=== PATIENT | male | born 1960 | race Caucasian/White ===

== ENCOUNTER 2019-10-03 11:56 | Inpatient (IN) ==
[2019-10-03] MEDS ORDERED: Ondansetron 4 MG/2 ML VIAL IVP PRN (15:02)
[2019-10-03] MEDS ORDERED: Acetaminophen 325 MG TABLET PO PRN (15:02)
[2019-10-03] MEDS ORDERED: Dextrose Gel 15 GM/37.5 ML TUBE PO PRN ×2 (15:14)
[2019-10-03] MEDS ORDERED: *HR* Dextrose 50 % in Water (Vial) 50 ML VIAL IVP PRN (15:14)
[2019-10-03] MEDS ORDERED: D5% in Water 1,000 ML IVC PRN (15:14)
[2019-10-03] MEDS ORDERED: Furosemide 40 MG/4 ML VIAL IVP ONE (16:06)
[2019-10-03 16:34] LABS: Adenovirus Not Detected (Not Detect); Bordetella Pertussis Not Detected (Not Detect); Chlamydophila pneumoniae Not Detected (Not Detect); Coronavirus 229E Not Detected (Not Detect); Coronavirus HKU1 Not Detected (Not Detect); Coronavirus NL63 Not Detected (Not Detect); Coronavirus OC43 Not Detected (Not Detect); Human Metapneumovirus Not Detected (Not Detect); Human Rhinovirus/Enterovirus Not Detected (Not Detect); Influenza A Subtype 2009 H1 Not Detected (Not Detect); Influenza B Not Detected (Not Detect); Mycoplasma pneumoniae Not Detected (Not Detect); Parainfluenza Virus 1 Not Detected (Not Detect); Parainfluenza Virus 2 Not Detected (Not Detect); Parainfluenza Virus 3 Not Detected (Not Detect); Parainfluenza Virus 4 Not Detected (Not Detect); Respiratory Syncytial Virus Not Detected (Not Detect)
[2019-10-03] MEDS: Insulin LISPRO 300 UNITS/3 ML VIAL SQ SCH ×2 (17:35→21:11)
[2019-10-04 04:02] LABS: Troponin I < 0.03 ng/mL (< 0.04)
[2019-10-04 04:06] LABS: Hematocrit 36.1 % (37.5-50.1); Hemoglobin 11.3 g/dL (12.9-16.9); Mean Corpuscular HGB Conc 31.3 g/dL (31.6-35.5); Mean Corpuscular Hemoglobin 31.3 pg (28.0-33.3); Mean Platelet Volume 12.7 fL (9.4-12.4); Red Blood Count 3.61 M/mcL (4.19-5.50); Red Cell Distribution Width 15.3 % (11.5-14.5); White Blood Count 5.5 K/mcL (4.3-11.1)
[2019-10-04 04:09] LABS: Platelet Count 44 K/mcL (140-400)
[2019-10-04 04:22] LABS: BUN/Creatinine Ratio 15 (6-26); Blood Urea Nitrogen 19 mg/dL (8-23); Calcium 8.9 mg/dL (8.6-10.3); Carbon Dioxide 17 mEq/L (23-29); Chloride 108 mEq/L (98-107); Glucose 92 mg/dL (70-105); Magnesium 1.9 mg/dL (1.6-2.6); Osmolality,Calculated 286 (280-300); Sodium 137 mEq/L (136-145); eGFR For African Americans > 60 (> 60); eGFR For Non-African Americans 56 (> 60)
[2019-10-04] MEDS: Insulin LISPRO 300 UNITS/3 ML VIAL SQ SCH ×3 (07:45→16:37)
[2019-10-04] MEDS: Furosemide 40 MG/4 ML VIAL IVP SCH ×2 (07:48→16:52)
[2019-10-05] MEDS: Insulin LISPRO 300 UNITS/3 ML VIAL SQ SCH ×4 (01:59→17:01)
[2019-10-05 06:40] LABS: BUN/Creatinine Ratio 18 (6-26); Blood Urea Nitrogen 24 mg/dL (8-23); Calcium 8.6 mg/dL (8.6-10.3); Carbon Dioxide 23 mEq/L (23-29); Chloride 107 mEq/L (98-107); Glucose 103 mg/dL (70-105); Magnesium 1.8 mg/dL (1.6-2.6); Osmolality,Calculated 288 (280-300); Potassium 4.1 mEq/L (3.5-5.1); Sodium 137 mEq/L (136-145); eGFR For African Americans > 60 (> 60); eGFR For Non-African Americans 53 (> 60)
[2019-10-05] MEDS: Furosemide 40 MG/4 ML VIAL IVP SCH ×2 (07:54→16:05)
[2019-10-06] MEDS: Insulin LISPRO 300 UNITS/3 ML VIAL SQ SCH ×5 (02:58→20:26)
[2019-10-06 06:53] LABS: Hemoglobin 11.2 g/dL (12.9-16.9); Mean Corpuscular Hemoglobin 31.6 pg (28.0-33.3); Red Blood Count 3.54 M/mcL (4.19-5.50); Red Cell Distribution Width 15.5 % (11.5-14.5)
[2019-10-06 06:55] LABS: Hematocrit 34.7 % (37.5-50.1); Immature Platelets 9.6 % (1.1-6.1); Mean Corpuscular HGB Conc 32.3 g/dL (31.6-35.5); Mean Platelet Volume 12.3 fL (9.4-12.4); White Blood Count 4.7 K/mcL (4.3-11.1)
[2019-10-06 07:15] LABS: BUN/Creatinine Ratio 20 (6-26); Blood Urea Nitrogen 26 mg/dL (8-23); Calcium 8.6 mg/dL (8.6-10.3); Carbon Dioxide 26 mEq/L (23-29); Chloride 107 mEq/L (98-107); Glucose 105 mg/dL (70-105); Magnesium 1.9 mg/dL (1.6-2.6); Osmolality,Calculated 293 (280-300); Sodium 139 mEq/L (136-145); eGFR For African Americans > 60 (> 60); eGFR For Non-African Americans 57 (> 60)
[2019-10-06] MEDS: Furosemide 40 MG/4 ML VIAL IVP SCH (09:17)
[2019-10-06] MEDS: Furosemide 40 MG TABLET PO SCH (16:30)
[2019-10-07 02:52] LABS: BUN/Creatinine Ratio 21 (6-26); Blood Urea Nitrogen 28 mg/dL (8-23); Calcium 8.9 mg/dL (8.6-10.3); Carbon Dioxide 24 mEq/L (23-29); Chloride 106 mEq/L (98-107); Glucose 95 mg/dL (70-105); Osmolality,Calculated 293 (280-300); Potassium 3.7 mEq/L (3.5-5.1); Sodium 139 mEq/L (136-145); eGFR For African Americans > 60 (> 60); eGFR For Non-African Americans 56 (> 60)
[2019-10-07] MEDS: Insulin LISPRO 300 UNITS/3 ML VIAL SQ SCH (07:40)
[2019-10-07 07:47] VITALS: BP 102/51
[2019-10-07] MEDS: Furosemide 40 MG TABLET PO SCH (07:50)
== END 2019-10-07 10:46 | disposition home or self-care (01) | DRG 291 ==
LOC: 2ANU → SUATTDRO 15:02
PROVIDERS: ADMIT Internal Medicine; ATTEND Internal Medicine

== ENCOUNTER 2020-07-06 16:14 | Inpatient (IN) ==
[2020-07-06 18:42] LABS: Basophils % 0.8 %; Eosinophils # 0.2 K/mcL (0.0-0.6); Eosinophils % 3.8 %; Hematocrit 23.4 % (37.5-50.1); Immature Granulocytes % 0.3 % (0-4); Lymphocytes # 1.1 K/mcL (0.6-4.6); Lymphocytes % 29.2 %; Mean Corpuscular HGB Conc 29.9 g/dL (31.6-35.5); Mean Corpuscular Hemoglobin 27.5 pg (28.0-33.3); Mean Corpuscular Volume 91.8 fL (83.0-100.0); Mean Platelet Volume 12.5 fL (9.4-12.4); Monocytes # 0.4 K/mcL (0.0-1.3); Neutrophils # 2.2 K/mcL (1.6-8.9); Platelet Count 45 K/mcL (140-400); Red Blood Count 2.55 M/mcL (4.19-5.50); Red Cell Distribution Width 16.1 % (11.5-14.5); Segmented Neutrophils % 55.9 %; White Blood Count 3.9 K/mcL (4.3-11.1)
[2020-07-06] MEDS ORDERED: Furosemide 40 MG/4 ML VIAL IVP ONE (19:08)
[2020-07-06 20:01] LABS: INR 1.3; Prothrombin Time 15.3 Seconds (9.4-12.1)
[2020-07-06 20:04] LABS: Activated Partial Thrombo Time 24.1 Seconds (26.0-36.0)
[2020-07-06] MEDS ORDERED: 0.9 % Sodium Chloride 500 ML IVC ONE (20:18)
[2020-07-06 20:19] LABS: Alanine Aminotransferase 14 Units/L (7-52); Albumin 3.1 g/dL (3.5-5.7); Albumin/Globulin Ratio 0.9 (1.1-2.2); Alkaline Phosphatase 84 Units/L (34-104); Aspartate Amino Transferase 24 Units/L (13-39); BUN/Creatinine Ratio 14 (6-26); Bilirubin,Direct 0.3 mg/dL (0.0-0.2); Bilirubin,Indirect 0.6 mg/dL (0.0-1.0); Bilirubin,Total 0.9 mg/dL (0.3-1.0); Blood Urea Nitrogen 21 mg/dL (8-23); Carbon Dioxide 20 mEq/L (23-29); Chloride 105 mEq/L (98-107); Globulin 3.5 g/dL (2.4-3.5); Glucose 126 mg/dL (70-105); Magnesium 1.7 mg/dL (1.6-2.6); Osmolality,Calculated 287 (280-300); Potassium 4.3 mEq/L (3.5-5.1); Sodium 136 mEq/L (136-145); Total Protein 6.6 g/dL (6.4-8.9); Troponin I < 0.03 ng/mL (< 0.04); eGFR For African Americans 56 (> 60); eGFR For Non-African Americans 46 (> 60)
[2020-07-06] MEDS ORDERED: Isovue-370 500 ML BOTTLE IVP ONE (20:20)
[2020-07-06] MEDS ORDERED: Pantoprazole 40 MG VIAL IVP ONE ×2 (20:32→23:36)
[2020-07-06 20:35] LABS: Bilirubin,Urine Negative (Negative); Blood,Urine Negative (Negative); Clarity,Urine Clear (Clear); Color,Urine Yellow (Yellow); Glucose,Urine (UA) 300 mg/dL (Normal); Ketones,Urine Negative (Negative); Leukocyte Esterase,Urine Negative (Negative); Nitrite,Urine Negative (Negative); Protein,Urine 50 mg/dL (Neg-Trace); RBC,Urine 0-3 per hpf (0-3); Specific Gravity,Urine 1.019 (1.010-1.025); Squamous Epithelial Cell,Urine Few per hpf (None-Few); Urobilinogen,Urine Normal (Normal); WBC,Urine 0-3 per hpf (0-3)
[2020-07-06] MEDS ORDERED: cefTRIAXone 1,000 MG in Water for inj. (sterile) 10 ML IVP ONE (20:53)
[2020-07-06] MEDS ORDERED: 0.9 % Sodium Chloride 250 ML ONE (21:33)
[2020-07-06] MEDS ORDERED: Octreotide 400 MCG in 0.9 % Sodium Chloride 100 ML IVC SCH (23:45)
[2020-07-07] MEDS: Pantoprazole 40 MG in 0.9 % Sodium Chloride Mini Bag 100 ML IVC SCH ×2 (00:29→11:09)
[2020-07-07] MEDS ORDERED: Ondansetron 4 MG/2 ML VIAL IVP PRN (03:15)
[2020-07-07] MEDS ORDERED: Naloxone 0.4 MG/ML INJ IVP PRN (03:15)
[2020-07-07 04:23] LABS: Adenovirus Not Detected (Not Detect); Bordetella Pertussis Not Detected (Not Detect); Chlamydophila pneumoniae Not Detected (Not Detect); Coronavirus 229E Not Detected (Not Detect); Coronavirus HKU1 Not Detected (Not Detect); Coronavirus NL63 Not Detected (Not Detect); Coronavirus OC43 Not Detected (Not Detect); Human Metapneumovirus Not Detected (Not Detect); Human Rhinovirus/Enterovirus Not Detected (Not Detect); Influenza A Subtype 2009 H1 Not Detected (Not Detect); Influenza B Not Detected (Not Detect); Mycoplasma pneumoniae Not Detected (Not Detect); Parainfluenza Virus 1 Not Detected (Not Detect); Parainfluenza Virus 2 Not Detected (Not Detect); Parainfluenza Virus 3 Not Detected (Not Detect); Parainfluenza Virus 4 Not Detected (Not Detect); Respiratory Syncytial Virus Not Detected (Not Detect); SARS-CoV-2 Not Detected (Not Detect)
[2020-07-07] MEDS ORDERED: *HR* Dextrose 50 % in Water (Vial) 50 ML VIAL IVP PRN (05:30)
[2020-07-07] MEDS ORDERED: Dextrose Gel 15 GM/37.5 ML TUBE PO PRN ×2 (05:30)
[2020-07-07] MEDS ORDERED: D5% in Water 1,000 ML IVC PRN (05:30)
[2020-07-07 07:18] LABS: Calcium 9.1 mg/dL (8.6-10.3); Potassium 4.3 mEq/L (3.5-5.1)
[2020-07-07 07:49] LABS: Hematocrit 26.2 % (37.5-50.1); Hemoglobin 7.8 g/dL (12.9-16.9); Mean Corpuscular HGB Conc 29.8 g/dL (31.6-35.5); Mean Corpuscular Hemoglobin 27.3 pg (28.0-33.3); Mean Corpuscular Volume 91.6 fL (83.0-100.0); Red Blood Count 2.86 M/mcL (4.19-5.50)
[2020-07-07 07:51] LABS: Immature Platelets 8.4 % (1.1-6.1); Mean Platelet Volume 12.3 fL (9.4-12.4); White Blood Count 5.5 K/mcL (4.3-11.1)
[2020-07-07] MEDS ORDERED: Metoclopramide 10 MG/2 ML VIAL IVP ONE (08:21)
[2020-07-07] MEDS ORDERED: Ipratropium/Albuterol Neb 3 ML IH PRN (08:34)
[2020-07-07] MEDS: Insulin LISPRO 300 UNITS/3 ML VIAL SUBQ SCH ×3 (12:18→20:35)
[2020-07-07 12:57] LABS: Hematocrit 23.9 % (37.5-50.1); Hemoglobin 7.2 g/dL (12.9-16.9)
[2020-07-07 13:17] LABS: Calcium 9.2 mg/dL (8.6-10.3); Potassium 4.5 mEq/L (3.5-5.1)
[2020-07-07] MEDS ORDERED: Lidocaine -MPF 2% 2 ML VIAL ONE (13:49)
[2020-07-07] MEDS ORDERED: *HR* Propofol 200 MG/20 ML VIAL IVP ONE (13:49)
[2020-07-07] MEDS ORDERED: calcitrioL 0.25 MCG CAPSULE PO SCH (14:45)
[2020-07-07] MEDS ORDERED: 0.9 % Sodium Chloride 250 ML ONE (18:05)
[2020-07-07] MEDS: Ammonium Lactate 30 APPL/225 GM BOTTLE TP SCH (20:42)
[2020-07-08] MEDS: Insulin LISPRO 300 UNITS/3 ML VIAL SUBQ SCH ×4 (00:41→16:39)
[2020-07-08 03:28] LABS: Basophils # 0.1 K/mcL (0.0-0.2); Eosinophils # 0.1 K/mcL (0.0-0.6); Eosinophils % 2.9 %; Hematocrit 24.6 % (37.5-50.1); Hemoglobin 7.4 g/dL (12.9-16.9); Immature Granulocytes % 0.2 % (0-4); Lymphocytes # 1.6 K/mcL (0.6-4.6); Lymphocytes % 32.2 %; Mean Corpuscular HGB Conc 30.1 g/dL (31.6-35.5); Mean Corpuscular Volume 89.8 fL (83.0-100.0); Mean Platelet Volume 11.5 fL (9.4-12.4); Monocytes # 0.5 K/mcL (0.0-1.3); Monocytes % 10.1 %; Neutrophils # 2.6 K/mcL (1.6-8.9); Platelet Count 56 K/mcL (140-400); Red Blood Count 2.74 M/mcL (4.19-5.50); Red Cell Distribution Width 16.9 % (11.5-14.5); Segmented Neutrophils % 53.6 %; White Blood Count 4.8 K/mcL (4.3-11.1)
[2020-07-08 03:46] LABS: Calcium 8.7 mg/dL (8.6-10.3); Potassium 4.4 mEq/L (3.5-5.1)
[2020-07-08 03:50] LABS: Anisocytosis 1+ (Not Present)
[2020-07-08 03:51] LABS: Platelet Estimate Decreased (Normal)
[2020-07-08] MEDS ORDERED: Cyanocobalamin (B-12) 1,000 MCG/ML VIAL IM SCH (09:00)
[2020-07-08] MEDS ORDERED: 0.9 % Sodium Chloride 250 ML ONE (10:08)
[2020-07-08] MEDS: Finasteride 5 MG TABLET PO SCH (10:43)
[2020-07-08] MEDS: Ammonium Lactate 30 APPL/225 GM BOTTLE TP SCH ×2 (10:44→20:34)
[2020-07-08 15:46] LABS: Hematocrit 26.3 % (37.5-50.1); Hemoglobin 8.1 g/dL (12.9-16.9)
[2020-07-08] MEDS ORDERED: Insulin LISPRO 300 UNITS/3 ML VIAL SUBQ SCH (21:00)
[2020-07-08 23:48] VITALS: O2SAT 92
[2020-07-09 03:39] LABS: Hemoglobin 7.7 g/dL (12.9-16.9); Immature Granulocytes % 0.2 % (0-4)
[2020-07-09 03:41] LABS: Basophils % 0.8 %; Eosinophils # 0.1 K/mcL (0.0-0.6); Eosinophils % 2.8 %; Hematocrit 25.7 % (37.5-50.1); Immature Platelets 8.6 % (1.1-6.1); Lymphocytes # 1.5 K/mcL (0.6-4.6); Mean Corpuscular Hemoglobin 27.4 pg (28.0-33.3); Mean Corpuscular Volume 91.5 fL (83.0-100.0); Mean Platelet Volume 12.2 fL (9.4-12.4); Monocytes # 0.5 K/mcL (0.0-1.3); Monocytes % 9.7 %; Neutrophils # 2.7 K/mcL (1.6-8.9); Red Blood Count 2.81 M/mcL (4.19-5.50); Red Cell Distribution Width 16.6 % (11.5-14.5); Segmented Neutrophils % 55.5 %; White Blood Count 4.9 K/mcL (4.3-11.1)
[2020-07-09 03:47] LABS: Platelet Count 51 K/mcL (140-400)
[2020-07-09 03:58] LABS: Calcium 8.7 mg/dL (8.6-10.3)
[2020-07-09 07:01] VITALS: BP 125/60; PULSE 77; TEMP 97.7
[2020-07-09] MEDS: Insulin LISPRO 300 UNITS/3 ML VIAL SUBQ SCH (09:15)
[2020-07-09] MEDS: Ammonium Lactate 30 APPL/225 GM BOTTLE TP SCH (09:16)
[2020-07-09] MEDS: Finasteride 5 MG TABLET PO SCH (09:16)
== END 2020-07-09 10:02 | disposition home health service (06) | DRG 377 ==
LOC: 3ANU 16:14 → EMEROOARM 16:14 → SUATTDRO 07-07 04:35 → 3ANU 07-07 04:52
PROVIDERS: ADMIT Student in an Organized Health Care Education/Training Program; ATTEND Family Medicine

== ENCOUNTER 2020-07-14 15:27 | Inpatient (IN) ==
[2020-07-14] MEDS ORDERED: Furosemide 40 MG/4 ML VIAL IVP ONE (16:03)
[2020-07-14 17:58] LABS: Basophils # 0.1 K/mcL (0.0-0.2); Eosinophils # 0.2 K/mcL (0.0-0.6); Eosinophils % 3.5 %; Hematocrit 25.8 % (37.5-50.1); Hemoglobin 7.8 g/dL (12.9-16.9); Immature Granulocytes % 0.4 % (0-4); Immature Platelets 7.2 % (1.1-6.1); Lymphocytes # 1.2 K/mcL (0.6-4.6); Lymphocytes % 24.4 %; Mean Corpuscular HGB Conc 30.2 g/dL (31.6-35.5); Mean Corpuscular Hemoglobin 27.8 pg (28.0-33.3); Mean Corpuscular Volume 91.8 fL (83.0-100.0); Monocytes # 0.5 K/mcL (0.0-1.3); Monocytes % 10.4 %; Neutrophils # 3.1 K/mcL (1.6-8.9); Red Blood Count 2.81 M/mcL (4.19-5.50); Red Cell Distribution Width 17.4 % (11.5-14.5); Segmented Neutrophils % 60.3 %; White Blood Count 5.1 K/mcL (4.3-11.1)
[2020-07-14 17:59] LABS: Platelet Count 54 K/mcL (140-400)
[2020-07-14 18:15] LABS: INR 1.4; Prothrombin Time 15.5 Seconds (9.4-12.1)
[2020-07-14 18:21] LABS: Alanine Aminotransferase 15 Units/L (7-52); Albumin 2.9 g/dL (3.5-5.7); Albumin/Globulin Ratio 0.9 (1.1-2.2); Alkaline Phosphatase 83 Units/L (34-104); Aspartate Amino Transferase 28 Units/L (13-39); BUN/Creatinine Ratio 9 (6-26); Bilirubin,Direct 0.3 mg/dL (0.0-0.2); Bilirubin,Indirect 0.9 mg/dL (0.0-1.0); Bilirubin,Total 1.2 mg/dL (0.3-1.0); Blood Urea Nitrogen 13 mg/dL (8-23); Carbon Dioxide 22 mEq/L (23-29); Chloride 109 mEq/L (98-107); Globulin 3.4 g/dL (2.4-3.5); Glucose 135 mg/dL (70-105); Osmolality,Calculated 288 (280-300); Potassium 4.1 mEq/L (3.5-5.1); Sodium 138 mEq/L (136-145); Total Protein 6.3 g/dL (6.4-8.9); Troponin I < 0.03 ng/mL (< 0.04); eGFR For African Americans 58 (> 60); eGFR For Non-African Americans 48 (> 60)
[2020-07-14] MEDS ORDERED: Isovue-370 500 ML BOTTLE IVP ONE (18:43)
[2020-07-14] MEDS ORDERED: Naloxone 0.4 MG/ML INJ IVP PRN (21:27)
[2020-07-14] MEDS ORDERED: Perflutren Lipid Microsphere 1.3 ML in 0.9 % Sodium Chloride 8.7 ML IVP PRN (23:08)
[2020-07-14] MEDS ORDERED: D5% in Water 1,000 ML IVC PRN (23:13)
[2020-07-14] MEDS ORDERED: *HR* Dextrose 50 % in Water (Vial) 50 ML VIAL IVP PRN (23:13)
[2020-07-14] MEDS ORDERED: Dextrose Gel 15 GM/37.5 ML TUBE PO PRN ×2 (23:13)
[2020-07-14] MEDS ORDERED: Insulin DETEMIR 100 UNIT/ML X5UNITS SUBQ SCH (23:15)
[2020-07-14] MEDS ORDERED: Insulin LISPRO 300 UNITS/3 ML VIAL SUBQ SCH (23:15)
[2020-07-14] MEDS: Insulin LISPRO 300 UNITS/3 ML VIAL SUBQ SCH (23:47)
[2020-07-15 01:49] LABS: Immature Granulocytes % 0.2 % (0-4); Mean Corpuscular HGB Conc 30.1 g/dL (31.6-35.5); Red Cell Distribution Width 17.3 % (11.5-14.5)
[2020-07-15 01:51] LABS: Basophils % 0.9 %; Eosinophils # 0.2 K/mcL (0.0-0.6); Hematocrit 25.6 % (37.5-50.1); Hemoglobin 7.7 g/dL (12.9-16.9); Immature Platelets 7.1 % (1.1-6.1); Lymphocytes # 1.4 K/mcL (0.6-4.6); Lymphocytes % 31.6 %; Mean Corpuscular Hemoglobin 27.7 pg (28.0-33.3); Mean Corpuscular Volume 92.1 fL (83.0-100.0); Mean Platelet Volume 12.3 fL (9.4-12.4); Monocytes # 0.5 K/mcL (0.0-1.3); Monocytes % 10.4 %; Neutrophils # 2.4 K/mcL (1.6-8.9); Red Blood Count 2.78 M/mcL (4.19-5.50); Segmented Neutrophils % 52.9 %; White Blood Count 4.5 K/mcL (4.3-11.1)
[2020-07-15 02:06] LABS: BUN/Creatinine Ratio 9 (6-26); Blood Urea Nitrogen 13 mg/dL (8-23); Carbon Dioxide 24 mEq/L (23-29); Chloride 108 mEq/L (98-107); Glucose 122 mg/dL (70-105); Osmolality,Calculated 287 (280-300); Potassium 3.9 mEq/L (3.5-5.1); Sodium 138 mEq/L (136-145); eGFR For African Americans > 60 (> 60); eGFR For Non-African Americans 50 (> 60)
[2020-07-15 02:11] LABS: Platelet Count 52 K/mcL (140-400)
[2020-07-15] MEDS: Gabapentin 100 MG CAPSULE PO SCH ×4 (03:56→20:45)
[2020-07-15] MEDS: Insulin LISPRO 300 UNITS/3 ML VIAL SUBQ SCH ×4 (07:31→20:14)
[2020-07-15] MEDS ORDERED: Tiotropium 10 INH DOSE IH ONE (07:56)
[2020-07-15] MEDS ORDERED: Furosemide 40 MG/4 ML VIAL IV SCH (08:00)
[2020-07-15] MEDS: Tiotropium 10 INH DOSE IH SCH (08:01)
[2020-07-15] MEDS: Budesonide/Formoterol 160/4.5 1 PUFF INH IH SCH (08:02)
[2020-07-15] MEDS: Finasteride 5 MG TABLET PO SCH (08:21)
[2020-07-15] MEDS ORDERED: Furosemide 80 MG in 0.9 % Sodium Chloride 50 ML IV SCH (09:00)
[2020-07-15] MEDS ORDERED: Furosemide 40 MG/4 ML VIAL IVP SCH (09:00)
[2020-07-15] MEDS: calcitrioL 0.25 MCG CAPSULE PO SCH (14:41)
[2020-07-15] MEDS: Furosemide 40 MG/4 ML VIAL IVP SCH (16:53)
[2020-07-15] MEDS: Ammonium Lactate 30 APPL/225 GM BOTTLE TP SCH (20:46)
[2020-07-16 02:59] LABS: Eosinophils % 4.3 %; Immature Granulocytes % 0.2 % (0-4); Mean Corpuscular HGB Conc 30.2 g/dL (31.6-35.5); Red Cell Distribution Width 17.6 % (11.5-14.5)
[2020-07-16 03:01] LABS: Basophils # 0.1 K/mcL (0.0-0.2); Basophils % 1.2 %; Eosinophils # 0.2 K/mcL (0.0-0.6); Hematocrit 24.5 % (37.5-50.1); Hemoglobin 7.4 g/dL (12.9-16.9); Immature Platelets 8.1 % (1.1-6.1); Lymphocytes # 1.5 K/mcL (0.6-4.6); Lymphocytes % 35.5 %; Mean Corpuscular Hemoglobin 27.4 pg (28.0-33.3); Mean Corpuscular Volume 90.7 fL (83.0-100.0); Mean Platelet Volume 11.3 fL (9.4-12.4); Monocytes # 0.4 K/mcL (0.0-1.3); Monocytes % 10.4 %; Segmented Neutrophils % 48.4 %; White Blood Count 4.1 K/mcL (4.3-11.1)
[2020-07-16 03:06] LABS: Platelet Count 53 K/mcL (140-400)
[2020-07-16 03:25] LABS: Albumin 2.9 g/dL (3.5-5.7); Albumin/Globulin Ratio 0.9 (1.1-2.2); Bilirubin,Direct 0.3 mg/dL (0.0-0.2); Bilirubin,Indirect 0.9 mg/dL (0.0-1.0); Bilirubin,Total 1.2 mg/dL (0.3-1.0); Calcium 8.9 mg/dL (8.6-10.3); Globulin 3.4 g/dL (2.4-3.5); Magnesium 1.7 mg/dL (1.6-2.6); Total Protein 6.3 g/dL (6.4-8.9)
[2020-07-16 03:44] LABS: Folate 7.9 ng/mL (3.0-16.0)
[2020-07-16 03:46] LABS: Vitamin B12 > 1500 pg/mL (250-1100)
[2020-07-16 04:02] LABS: Hepatitis B Surface Antigen Nonreactive (Nonreactive)
[2020-07-16 04:30] LABS: Hepatitis C Virus Antibody Nonreactive (Nonreactive)
[2020-07-16] MEDS: Insulin LISPRO 300 UNITS/3 ML VIAL SUBQ SCH ×4 (07:03→21:46)
[2020-07-16] MEDS: Budesonide/Formoterol 160/4.5 1 PUFF INH IH SCH (07:45)
[2020-07-16] MEDS: Tiotropium 10 INH DOSE IH SCH (07:45)
[2020-07-16] MEDS: Gabapentin 100 MG CAPSULE PO SCH ×3 (08:54→20:21)
[2020-07-16] MEDS: Furosemide 40 MG/4 ML VIAL IVP SCH ×2 (08:54→17:54)
[2020-07-16] MEDS: Ammonium Lactate 30 APPL/225 GM BOTTLE TP SCH ×2 (08:54→20:22)
[2020-07-16] MEDS: Finasteride 5 MG TABLET PO SCH (08:54)
[2020-07-16] MEDS: Iron Sucrose Complex 250 MG in 0.9 % Sodium Chloride 250 ML IVPB SCH (08:55)
[2020-07-16] MEDS: Nicotine 14 MG PATCH.TD24 TD SCH (08:59)
[2020-07-16] MEDS ORDERED: CALCIFEDIOL 30 MCG PO SCH (09:00)
[2020-07-17 02:04] LABS: Hemoglobin 7.6 g/dL (12.9-16.9); Immature Granulocytes % 0.2 % (0-4)
[2020-07-17 02:06] LABS: Basophils # 0.1 K/mcL (0.0-0.2); Basophils % 1.2 %; Eosinophils # 0.2 K/mcL (0.0-0.6); Eosinophils % 3.8 %; Hematocrit 24.7 % (37.5-50.1); Immature Platelets 7.8 % (1.1-6.1); Lymphocytes # 1.5 K/mcL (0.6-4.6); Lymphocytes % 36.3 %; Mean Corpuscular HGB Conc 30.8 g/dL (31.6-35.5); Mean Corpuscular Hemoglobin 27.7 pg (28.0-33.3); Mean Corpuscular Volume 90.1 fL (83.0-100.0); Mean Platelet Volume 11.5 fL (9.4-12.4); Monocytes # 0.4 K/mcL (0.0-1.3); Monocytes % 10.4 %; Red Blood Count 2.74 M/mcL (4.19-5.50); Red Cell Distribution Width 17.6 % (11.5-14.5); Segmented Neutrophils % 48.1 %; White Blood Count 4.2 K/mcL (4.3-11.1)
[2020-07-17 02:12] LABS: Platelet Count 54 K/mcL (140-400)
[2020-07-17 02:24] LABS: Calcium 8.9 mg/dL (8.6-10.3); Magnesium 1.7 mg/dL (1.6-2.6)
[2020-07-17 02:30] LABS: Anisocytosis 1+ (Not Present); Platelet Estimate Decreased (Normal); Poikilocytosis 1+ (Not Present); Target Cells 1+ (Not Present)
[2020-07-17] MEDS: Tiotropium 10 INH DOSE IH SCH (07:24)
[2020-07-17] MEDS: Budesonide/Formoterol 160/4.5 1 PUFF INH IH SCH (07:24)
[2020-07-17] MEDS: Insulin LISPRO 300 UNITS/3 ML VIAL SUBQ SCH ×4 (07:49→20:27)
[2020-07-17] MEDS: Gabapentin 100 MG CAPSULE PO SCH ×3 (08:12→20:27)
[2020-07-17] MEDS: Furosemide 40 MG/4 ML VIAL IVP SCH (08:13)
[2020-07-17] MEDS: Finasteride 5 MG TABLET PO SCH (08:13)
[2020-07-17] MEDS: Nicotine 14 MG PATCH.TD24 TD SCH (08:13)
[2020-07-17] MEDS: Ammonium Lactate 30 APPL/225 GM BOTTLE TP SCH ×2 (08:14→20:22)
[2020-07-17] MEDS: Iron Sucrose Complex 250 MG in 0.9 % Sodium Chloride 250 ML IVPB SCH (10:20)
[2020-07-17] MEDS: calcitrioL 0.25 MCG CAPSULE PO SCH (14:41)
[2020-07-17] MEDS: Furosemide 40 MG TABLET PO SCH (18:21)
[2020-07-17] MEDS: Loratadine 10 MG TABLET PO SCH (20:27)
[2020-07-18 01:33] LABS: Hemoglobin 7.7 g/dL (12.9-16.9)
[2020-07-18 01:35] LABS: Basophils # 0.1 K/mcL (0.0-0.2); Basophils % 1.2 %; Eosinophils # 0.2 K/mcL (0.0-0.6); Eosinophils % 3.5 %; Hematocrit 25.8 % (37.5-50.1); Immature Granulocytes % 0.2 % (0-4); Immature Platelets 7.5 % (1.1-6.1); Lymphocytes # 1.4 K/mcL (0.6-4.6); Lymphocytes % 32.9 %; Mean Corpuscular HGB Conc 29.8 g/dL (31.6-35.5); Mean Corpuscular Hemoglobin 27.3 pg (28.0-33.3); Mean Corpuscular Volume 91.5 fL (83.0-100.0); Monocytes # 0.4 K/mcL (0.0-1.3); Monocytes % 10.3 %; Neutrophils # 2.2 K/mcL (1.6-8.9); Red Blood Count 2.82 M/mcL (4.19-5.50); Red Cell Distribution Width 17.8 % (11.5-14.5); Segmented Neutrophils % 51.9 %; White Blood Count 4.3 K/mcL (4.3-11.1)
[2020-07-18 01:36] LABS: Platelet Count 55 K/mcL (140-400)
[2020-07-18 01:54] LABS: Calcium 9.1 mg/dL (8.6-10.3); Magnesium 1.8 mg/dL (1.6-2.6); Potassium 4.3 mEq/L (3.5-5.1)
[2020-07-18] MEDS: Insulin LISPRO 300 UNITS/3 ML VIAL SUBQ SCH ×4 (07:48→21:04)
[2020-07-18] MEDS: Nicotine 14 MG PATCH.TD24 TD SCH (07:50)
[2020-07-18] MEDS: Ammonium Lactate 30 APPL/225 GM BOTTLE TP SCH ×2 (07:57→21:05)
[2020-07-18] MEDS: Furosemide 40 MG TABLET PO SCH ×2 (07:57→16:11)
[2020-07-18] MEDS: Gabapentin 100 MG CAPSULE PO SCH ×3 (07:57→21:04)
[2020-07-18] MEDS: Finasteride 5 MG TABLET PO SCH (07:57)
[2020-07-18] MEDS: Iron Sucrose Complex 250 MG in 0.9 % Sodium Chloride 250 ML IVPB SCH (07:58)
[2020-07-18] MEDS: Budesonide/Formoterol 160/4.5 1 PUFF INH IH SCH (10:42)
[2020-07-18] MEDS: Tiotropium 10 INH DOSE IH SCH (10:44)
[2020-07-18] MEDS ORDERED: Isovue-370 500 ML BOTTLE IVP ONE (15:10)
[2020-07-18 15:42] LABS: Hemoglobin 8.2 g/dL (12.9-16.9); Red Cell Distribution Width 17.8 % (11.5-14.5)
[2020-07-18 15:44] LABS: Eosinophils # 0.1 K/mcL (0.0-0.6); Eosinophils % 2.4 %; Hematocrit 26.8 % (37.5-50.1); Immature Granulocytes % 0.7 % (0-4); Lymphocytes # 1.1 K/mcL (0.6-4.6); Lymphocytes % 26.5 %; Mean Corpuscular HGB Conc 30.6 g/dL (31.6-35.5); Mean Corpuscular Hemoglobin 27.7 pg (28.0-33.3); Mean Corpuscular Volume 90.5 fL (83.0-100.0); Mean Platelet Volume 11.8 fL (9.4-12.4); Monocytes # 0.4 K/mcL (0.0-1.3); Monocytes % 10.7 %; Neutrophils # 2.4 K/mcL (1.6-8.9); Red Blood Count 2.96 M/mcL (4.19-5.50); Segmented Neutrophils % 58.7 %; White Blood Count 4.1 K/mcL (4.3-11.1)
[2020-07-18 15:56] LABS: Alanine Aminotransferase 15 Units/L (7-52); Albumin 3.3 g/dL (3.5-5.7); Albumin/Globulin Ratio 0.9 (1.1-2.2); Alkaline Phosphatase 90 Units/L (34-104); Aspartate Amino Transferase 28 Units/L (13-39); BUN/Creatinine Ratio 14 (6-26); Bilirubin,Direct 0.4 mg/dL (0.0-0.2); Bilirubin,Indirect 0.8 mg/dL (0.0-1.0); Bilirubin,Total 1.2 mg/dL (0.3-1.0); Blood Urea Nitrogen 22 mg/dL (8-23); Calcium 9.5 mg/dL (8.6-10.3); Carbon Dioxide 25 mEq/L (23-29); Chloride 106 mEq/L (98-107); Globulin 3.7 g/dL (2.4-3.5); Glucose 117 mg/dL (70-105); Magnesium 1.8 mg/dL (1.6-2.6); Osmolality,Calculated 290 (280-300); Platelet Count 54 K/mcL (140-400); Potassium 4.2 mEq/L (3.5-5.1); Sodium 138 mEq/L (136-145); Troponin I < 0.03 ng/mL (< 0.04); eGFR For African Americans 56 (> 60); eGFR For Non-African Americans 46 (> 60)
[2020-07-18 16:05] LABS: Anisocytosis 1+ (Not Present); Hypochromasia Present (Not Present); Platelet Estimate Decreased (Normal)
[2020-07-18] MEDS: Lactulose Oral Soln 20 GM/30 ML UDC PO SCH ×2 (16:45→21:04)
[2020-07-18] MEDS: Loratadine 10 MG TABLET PO SCH (21:04)
[2020-07-18] MEDS: Ipratropium/Albuterol Neb 3 ML IH PRN (21:31)
[2020-07-18 21:48] LABS: ABG Base Excess 3 mEq/L (-2 to 3); ABG HCO3 28 mEq/L (21-27); ABG Oxygen Saturation 92 % (95-98); ABG PCO2 43 mmHg (35-45); ABG PH 7.42 pH Units (7.32-7.45); ABG PO2 64 mmHg (85-104); ABG TCO2 30 mEq/L (20-26)
[2020-07-19] MEDS: Melatonin 3 MG TABLET PO SCH ×2 (00:11→20:46)
[2020-07-19 02:20] LABS: Immature Granulocytes % 0.5 % (0-4)
[2020-07-19 02:22] LABS: Eosinophils # 0.1 K/mcL (0.0-0.6); Eosinophils % 1.8 %; Hematocrit 26.7 % (37.5-50.1); Lymphocytes # 1.2 K/mcL (0.6-4.6); Mean Corpuscular Volume 90.2 fL (83.0-100.0); Mean Platelet Volume 11.3 fL (9.4-12.4); Monocytes # 0.4 K/mcL (0.0-1.3); Monocytes % 10.4 %; Neutrophils # 2.3 K/mcL (1.6-8.9); Red Blood Count 2.96 M/mcL (4.19-5.50); Red Cell Distribution Width 18.1 % (11.5-14.5); Segmented Neutrophils % 57.3 %
[2020-07-19 02:26] LABS: Platelet Count 56 K/mcL (140-400)
[2020-07-19 02:34] LABS: INR 1.4; Prothrombin Time 15.5 Seconds (9.4-12.1)
[2020-07-19 02:42] LABS: BUN/Creatinine Ratio 15 (6-26); Blood Urea Nitrogen 21 mg/dL (8-23); Calcium 9.4 mg/dL (8.6-10.3); Carbon Dioxide 24 mEq/L (23-29); Chloride 107 mEq/L (98-107); Glucose 109 mg/dL (70-105); Magnesium 1.8 mg/dL (1.6-2.6); Osmolality,Calculated 294 (280-300); Potassium 4.2 mEq/L (3.5-5.1); Sodium 140 mEq/L (136-145); eGFR For African Americans > 60 (> 60); eGFR For Non-African Americans 51 (> 60)
[2020-07-19 02:43] LABS: Albumin 3.1 g/dL (3.5-5.7); Albumin/Globulin Ratio 0.8 (1.1-2.2); Bilirubin,Direct 0.4 mg/dL (0.0-0.2); Bilirubin,Indirect 0.9 mg/dL (0.0-1.0); Bilirubin,Total 1.3 mg/dL (0.3-1.0); Globulin 3.7 g/dL (2.4-3.5); Total Protein 6.8 g/dL (6.4-8.9)
[2020-07-19] MEDS: Insulin LISPRO 300 UNITS/3 ML VIAL SUBQ SCH ×4 (08:00→21:01)
[2020-07-19] MEDS: Furosemide 40 MG TABLET PO SCH (08:00)
[2020-07-19] MEDS: Gabapentin 100 MG CAPSULE PO SCH ×3 (08:00→20:47)
[2020-07-19] MEDS: Finasteride 5 MG TABLET PO SCH (08:01)
[2020-07-19] MEDS: Nicotine 14 MG PATCH.TD24 TD SCH (08:02)
[2020-07-19] MEDS: Lactulose Oral Soln 20 GM/30 ML UDC PO SCH ×3 (08:02→20:48)
[2020-07-19] MEDS: Ammonium Lactate 30 APPL/225 GM BOTTLE TP SCH ×2 (08:02→20:47)
[2020-07-19] MEDS: Budesonide/Formoterol 160/4.5 1 PUFF INH IH SCH (09:06)
[2020-07-19] MEDS: Tiotropium 10 INH DOSE IH SCH (09:07)
[2020-07-19] MEDS: Ipratropium/Albuterol Neb 3 ML IH PRN (09:08)
[2020-07-19] MEDS: Iron Sucrose Complex 250 MG in 0.9 % Sodium Chloride 250 ML IVPB SCH (09:15)
[2020-07-19] MEDS: calcitrioL 0.25 MCG CAPSULE PO SCH (15:13)
[2020-07-19] MEDS: Furosemide 40 MG/4 ML VIAL IVP SCH ×2 (15:14→20:48)
[2020-07-19] MEDS: Loratadine 10 MG TABLET PO SCH (20:47)
[2020-07-20 04:12] LABS: Basophils % 1.1 %; Eosinophils % 3.1 %; Red Blood Count 2.89 M/mcL (4.19-5.50)
[2020-07-20 04:13] LABS: Basophils # 0.1 K/mcL (0.0-0.2); Eosinophils # 0.1 K/mcL (0.0-0.6); Hematocrit 26.6 % (37.5-50.1); Immature Granulocytes % 0.7 % (0-4); Immature Platelets 8.2 % (1.1-6.1); Lymphocytes # 1.4 K/mcL (0.6-4.6); Lymphocytes % 30.8 %; Mean Corpuscular HGB Conc 30.1 g/dL (31.6-35.5); Mean Corpuscular Hemoglobin 27.7 pg (28.0-33.3); Mean Platelet Volume 11.8 fL (9.4-12.4); Monocytes # 0.5 K/mcL (0.0-1.3); Monocytes % 11.7 %; Red Cell Distribution Width 18.7 % (11.5-14.5); Segmented Neutrophils % 52.6 %; White Blood Count 4.5 K/mcL (4.3-11.1)
[2020-07-20 04:17] LABS: Neutrophils # 2.4 K/mcL (1.6-8.9); Platelet Count 53 K/mcL (140-400)
[2020-07-20 04:21] LABS: Albumin/Globulin Ratio 0.9 (1.1-2.2); Bilirubin,Direct 0.4 mg/dL (0.0-0.2); Bilirubin,Indirect 1.1 mg/dL (0.0-1.0); Bilirubin,Total 1.5 mg/dL (0.3-1.0); Calcium 9.3 mg/dL (8.6-10.3); Globulin 3.3 g/dL (2.4-3.5); Magnesium 1.9 mg/dL (1.6-2.6); Phosphorous 3.1 mg/dL (2.7-4.5); Potassium 3.6 mEq/L (3.5-5.1); Total Protein 6.3 g/dL (6.4-8.9)
[2020-07-20 04:22] LABS: Estimated Average Glucose 100 mg/dl; Hemoglobin A1C 5.1 %
[2020-07-20] MEDS: Lactulose Oral Soln 20 GM/30 ML UDC PO SCH ×3 (08:41→21:53)
[2020-07-20] MEDS: Nicotine 14 MG PATCH.TD24 TD SCH (08:43)
[2020-07-20] MEDS: Gabapentin 100 MG CAPSULE PO SCH ×3 (08:43→21:55)
[2020-07-20] MEDS: Finasteride 5 MG TABLET PO SCH (08:43)
[2020-07-20] MEDS: Furosemide 40 MG/4 ML VIAL IVP SCH ×2 (08:44→21:53)
[2020-07-20] MEDS: Insulin LISPRO 300 UNITS/3 ML VIAL SUBQ SCH ×4 (08:55→22:03)
[2020-07-20] MEDS: Ammonium Lactate 30 APPL/225 GM BOTTLE TP SCH (08:59)
[2020-07-20] MEDS: Budesonide/Formoterol 160/4.5 1 PUFF INH IH SCH (11:30)
[2020-07-20] MEDS: Tiotropium 10 INH DOSE IH SCH (11:30)
[2020-07-20] MEDS: Loratadine 10 MG TABLET PO SCH (21:54)
[2020-07-20] MEDS: Melatonin 3 MG TABLET PO SCH (21:54)
[2020-07-21] MEDS: Ammonium Lactate 30 APPL/225 GM BOTTLE TP SCH ×3 (00:41→22:26)
[2020-07-21 03:00] LABS: Alanine Aminotransferase 18 Units/L (7-52); Albumin 3.1 g/dL (3.5-5.7); Albumin/Globulin Ratio 0.8 (1.1-2.2); Alkaline Phosphatase 86 Units/L (34-104); Aspartate Amino Transferase 50 Units/L (13-39); BUN/Creatinine Ratio 12 (6-26); Bilirubin,Direct 0.3 mg/dL (0.0-0.2); Bilirubin,Indirect 1.5 mg/dL (0.0-1.0); Bilirubin,Total 1.8 mg/dL (0.3-1.0); Blood Urea Nitrogen 17 mg/dL (8-23); Calcium 9.5 mg/dL (8.6-10.3); Carbon Dioxide 27 mEq/L (23-29); Chloride 110 mEq/L (98-107); Globulin 3.8 g/dL (2.4-3.5); Glucose 106 mg/dL (70-105); Osmolality,Calculated 302 (280-300); Potassium 3.8 mEq/L (3.5-5.1); Sodium 145 mEq/L (136-145); Total Protein 6.9 g/dL (6.4-8.9); eGFR For African Americans > 60 (> 60); eGFR For Non-African Americans 50 (> 60)
[2020-07-21 04:52] LABS: Basophils % 0.9 %; Immature Granulocytes % 0.7 % (0-4); Mean Corpuscular Volume 91.6 fL (83.0-100.0)
[2020-07-21 04:54] LABS: Eosinophils # 0.2 K/mcL (0.0-0.6); Eosinophils % 3.7 %; Hematocrit 27.3 % (37.5-50.1); Hemoglobin 8.3 g/dL (12.9-16.9); Immature Platelets 8.3 % (1.1-6.1); Lymphocytes # 1.4 K/mcL (0.6-4.6); Lymphocytes % 30.6 %; Mean Corpuscular HGB Conc 30.4 g/dL (31.6-35.5); Mean Corpuscular Hemoglobin 27.9 pg (28.0-33.3); Mean Platelet Volume 12.9 fL (9.4-12.4); Monocytes # 0.5 K/mcL (0.0-1.3); Monocytes % 10.9 %; Red Blood Count 2.98 M/mcL (4.19-5.50); Red Cell Distribution Width 19.2 % (11.5-14.5); Segmented Neutrophils % 53.2 %; White Blood Count 4.6 K/mcL (4.3-11.1)
[2020-07-21 04:58] LABS: Neutrophils # 2.5 K/mcL (1.6-8.9); Platelet Count 50 K/mcL (140-400)
[2020-07-21] MEDS: Budesonide/Formoterol 160/4.5 1 PUFF INH IH SCH (07:41)
[2020-07-21] MEDS: Tiotropium 10 INH DOSE IH SCH (07:41)
[2020-07-21] MEDS: Insulin LISPRO 300 UNITS/3 ML VIAL SUBQ SCH ×4 (08:05→22:15)
[2020-07-21] MEDS: Lactulose Oral Soln 20 GM/30 ML UDC PO SCH ×3 (08:49→22:14)
[2020-07-21] MEDS: Finasteride 5 MG TABLET PO SCH (08:49)
[2020-07-21] MEDS: Gabapentin 100 MG CAPSULE PO SCH ×3 (08:50→22:26)
[2020-07-21] MEDS: Nicotine 14 MG PATCH.TD24 TD SCH (08:50)
[2020-07-21] MEDS: Furosemide 40 MG/4 ML VIAL IVP SCH ×2 (08:51→22:15)
[2020-07-21] MEDS: calcitrioL 0.25 MCG CAPSULE PO SCH (11:33)
[2020-07-21] MEDS: Melatonin 3 MG TABLET PO SCH (22:14)
[2020-07-21] MEDS: Loratadine 10 MG TABLET PO SCH (22:14)
[2020-07-22 05:34] LABS: Basophils # 0.1 K/mcL (0.0-0.2); Basophils % 1.1 %; Eosinophils # 0.2 K/mcL (0.0-0.6); Eosinophils % 4.7 %; Hematocrit 27.1 % (37.5-50.1); Hemoglobin 8.1 g/dL (12.9-16.9); Immature Granulocytes % 0.4 % (0-4); Lymphocytes # 1.5 K/mcL (0.6-4.6); Lymphocytes % 32.3 %; Mean Corpuscular HGB Conc 29.9 g/dL (31.6-35.5); Mean Corpuscular Hemoglobin 27.6 pg (28.0-33.3); Mean Corpuscular Volume 92.2 fL (83.0-100.0); Mean Platelet Volume 11.9 fL (9.4-12.4); Monocytes # 0.4 K/mcL (0.0-1.3); Monocytes % 8.3 %; Neutrophils # 2.5 K/mcL (1.6-8.9); Platelet Count 57 K/mcL (140-400); Red Blood Count 2.94 M/mcL (4.19-5.50); Segmented Neutrophils % 53.2 %; White Blood Count 4.7 K/mcL (4.3-11.1)
[2020-07-22 05:43] LABS: Magnesium 1.7 mg/dL (1.6-2.6); Potassium 3.5 mEq/L (3.5-5.1)
[2020-07-22 05:44] LABS: Albumin/Globulin Ratio 0.9 (1.1-2.2); Bilirubin,Direct 0.4 mg/dL (0.0-0.2); Bilirubin,Indirect 1.4 mg/dL (0.0-1.0); Bilirubin,Total 1.8 mg/dL (0.3-1.0); Globulin 3.4 g/dL (2.4-3.5); Total Protein 6.4 g/dL (6.4-8.9)
[2020-07-22] MEDS: Tiotropium 10 INH DOSE IH SCH (07:50)
[2020-07-22] MEDS: Budesonide/Formoterol 160/4.5 1 PUFF INH IH SCH (07:52)
[2020-07-22] MEDS: Insulin LISPRO 300 UNITS/3 ML VIAL SUBQ SCH ×4 (08:10→21:15)
[2020-07-22] MEDS: Lactulose Oral Soln 20 GM/30 ML UDC PO SCH ×3 (08:45→21:15)
[2020-07-22] MEDS: Nicotine 14 MG PATCH.TD24 TD SCH (08:46)
[2020-07-22] MEDS: Furosemide 40 MG/4 ML VIAL IVP SCH (08:46)
[2020-07-22] MEDS: Finasteride 5 MG TABLET PO SCH (08:46)
[2020-07-22] MEDS: Gabapentin 100 MG CAPSULE PO SCH ×3 (08:46→21:15)
[2020-07-22] MEDS: Ammonium Lactate 30 APPL/225 GM BOTTLE TP SCH ×2 (08:48→21:12)
[2020-07-22 16:56] LABS: Adenovirus Not Detected (Not Detect); Bordetella Pertussis Not Detected (Not Detect); Chlamydophila pneumoniae Not Detected (Not Detect); Coronavirus 229E Not Detected (Not Detect); Coronavirus HKU1 Not Detected (Not Detect); Coronavirus NL63 Not Detected (Not Detect); Coronavirus OC43 Not Detected (Not Detect); Human Metapneumovirus Not Detected (Not Detect); Human Rhinovirus/Enterovirus Not Detected (Not Detect); Influenza A Subtype 2009 H1 Not Detected (Not Detect); Influenza B Not Detected (Not Detect); Mycoplasma pneumoniae Not Detected (Not Detect); Parainfluenza Virus 1 Not Detected (Not Detect); Parainfluenza Virus 2 Not Detected (Not Detect); Parainfluenza Virus 3 Not Detected (Not Detect); Parainfluenza Virus 4 Not Detected (Not Detect); Respiratory Syncytial Virus Not Detected (Not Detect); SARS-CoV-2 Not Detected (Not Detect)
[2020-07-22] MEDS ORDERED: Furosemide 40 MG/4 ML VIAL IVP SCH (17:00)
[2020-07-22] MEDS: Furosemide 40 MG TABLET PO SCH (17:46)
[2020-07-22] MEDS: Loratadine 10 MG TABLET PO SCH (21:13)
[2020-07-22] MEDS: Melatonin 3 MG TABLET PO SCH (21:13)
[2020-07-23 04:56] LABS: BUN/Creatinine Ratio 10 (6-26); Blood Urea Nitrogen 15 mg/dL (8-23); Calcium 8.6 mg/dL (8.6-10.3); Carbon Dioxide 27 mEq/L (23-29); Chloride 106 mEq/L (98-107); Glucose 107 mg/dL (70-105); Osmolality,Calculated 291 (280-300); Potassium 3.5 mEq/L (3.5-5.1); Sodium 140 mEq/L (136-145); eGFR For African Americans > 60 (> 60); eGFR For Non-African Americans 50 (> 60)
[2020-07-23 07:19] VITALS: BP 96/60
[2020-07-23] MEDS: Insulin LISPRO 300 UNITS/3 ML VIAL SUBQ SCH (09:55)
[2020-07-23] MEDS: Lactulose Oral Soln 20 GM/30 ML UDC PO SCH (09:58)
[2020-07-23] MEDS: Furosemide 40 MG TABLET PO SCH (09:58)
[2020-07-23] MEDS: Finasteride 5 MG TABLET PO SCH (09:59)
[2020-07-23] MEDS: Nicotine 14 MG PATCH.TD24 TD SCH (09:59)
[2020-07-23] MEDS: Gabapentin 100 MG CAPSULE PO SCH (09:59)
[2020-07-23] MEDS: Ammonium Lactate 30 APPL/225 GM BOTTLE TP SCH (10:10)
[2020-07-23] MEDS: Budesonide/Formoterol 160/4.5 1 PUFF INH IH SCH (11:07)
[2020-07-23] MEDS: Tiotropium 10 INH DOSE IH SCH (11:07)
== END 2020-07-23 11:24 | disposition other institution (70) | DRG 291 ==
LOC: 2ANU 15:27 → EMEROOARM 15:27 → SUATTDRO 21:05 → 2ANU 21:59 → SUATTDRO 07-16 14:40 → 2ANU 07-17 14:34
PROVIDERS: ADMIT Internal Medicine; ATTEND Internal Medicine

== ENCOUNTER 2020-07-29 21:34 | Inpatient (IN) ==
[2020-07-30] MEDS ORDERED: Ondansetron 4 MG/2 ML VIAL IVP PRN (01:21)
[2020-07-30] MEDS ORDERED: Naloxone 0.4 MG/ML INJ IVP PRN (01:21)
[2020-07-30] MEDS ORDERED: Lactulose 200 GM, Sodium Chloride IRRigation 700 ML RC ONE (01:24)
[2020-07-30 05:22] LABS: Bilirubin,Urine Negative (Negative); Blood,Urine Negative (Negative); Clarity,Urine Clear (Clear); Color,Urine Light-Yellow (Yellow); Glucose,Urine (UA) Normal (Normal); Ketones,Urine Negative (Negative); Leukocyte Esterase,Urine Negative (Negative); Nitrite,Urine Negative (Negative); PH,Urine 6.5 pH Units (5.0-8.0); Protein,Urine Negative (Neg-Trace); Specific Gravity,Urine 1.011 (1.010-1.025); Urobilinogen,Urine Normal (Normal)
[2020-07-30 06:41] LABS: Immature Granulocytes % 0.3 % (0-4); Mean Corpuscular Volume 94.5 fL (83.0-100.0)
[2020-07-30 06:43] LABS: Basophils % 1.2 %; Eosinophils # 0.2 K/mcL (0.0-0.6); Eosinophils % 4.5 %; Hematocrit 27.5 % (37.5-50.1); Hemoglobin 8.5 g/dL (12.9-16.9); Immature Platelets 7.8 % (1.1-6.1); Lymphocytes # 1.1 K/mcL (0.6-4.6); Lymphocytes % 33.6 %; Mean Corpuscular HGB Conc 30.9 g/dL (31.6-35.5); Mean Corpuscular Hemoglobin 29.2 pg (28.0-33.3); Mean Platelet Volume 12.1 fL (9.4-12.4); Monocytes # 0.4 K/mcL (0.0-1.3); Monocytes % 11.1 %; Neutrophils # 1.6 K/mcL (1.6-8.9); Red Blood Count 2.91 M/mcL (4.19-5.50); Red Cell Distribution Width 22.4 % (11.5-14.5); Segmented Neutrophils % 49.3 %; White Blood Count 3.3 K/mcL (4.3-11.1)
[2020-07-30 06:44] LABS: Platelet Count 47 K/mcL (140-400)
[2020-07-30 06:54] LABS: INR 1.3; Prothrombin Time 15.3 Seconds (9.4-12.1)
[2020-07-30 06:56] LABS: Activated Partial Thrombo Time 37.7 Seconds (26.0-36.0)
[2020-07-30 06:57] LABS: ABG Base Excess 2 mEq/L (-2 to 3); ABG HCO3 27 mEq/L (21-27); ABG Oxygen Saturation 93 % (95-98); ABG PCO2 43 mmHg (35-45); ABG PO2 67 mmHg (85-104); ABG TCO2 28 mEq/L (20-26)
[2020-07-30 07:12] LABS: Anisocytosis 1+ (Not Present); Platelet Estimate Decreased (Normal)
[2020-07-30] MEDS ORDERED: *HR* Dextrose 50 % in Water (Vial) 50 ML VIAL IVP PRN (07:22)
[2020-07-30] MEDS ORDERED: D5% in Water 1,000 ML IVC PRN (07:22)
[2020-07-30] MEDS ORDERED: Dextrose Gel 15 GM/37.5 ML TUBE PO PRN ×2 (07:22)
[2020-07-30 07:32] LABS: Alanine Aminotransferase 18 Units/L (7-52); Albumin/Globulin Ratio 0.9 (1.1-2.2); Alkaline Phosphatase 76 Units/L (34-104); Aspartate Amino Transferase 31 Units/L (13-39); BUN/Creatinine Ratio 12 (6-26); Bilirubin,Total 1.6 mg/dL (0.3-1.0); Blood Urea Nitrogen 19 mg/dL (8-23); Calcium 9.6 mg/dL (8.6-10.3); Carbon Dioxide 25 mEq/L (23-29); Chloride 112 mEq/L (98-107); Globulin 3.5 g/dL (2.4-3.5); Glucose 121 mg/dL (70-105); Osmolality,Calculated 304 (280-300); Sodium 145 mEq/L (136-145); Total Protein 6.5 g/dL (6.4-8.9); Troponin I < 0.03 ng/mL (< 0.04); eGFR For African Americans 55 (> 60); eGFR For Non-African Americans 46 (> 60)
[2020-07-30] MEDS: Insulin LISPRO 300 UNITS/3 ML VIAL SUBQ SCH ×3 (08:35→16:37)
[2020-07-31 03:34] LABS: Eosinophils % 4.2 %; Mean Corpuscular Volume 95.7 fL (83.0-100.0); Red Cell Distribution Width 22.5 % (11.5-14.5)
[2020-07-31 03:36] LABS: Basophils # 0.1 K/mcL (0.0-0.2); Basophils % 1.3 %; Eosinophils # 0.2 K/mcL (0.0-0.6); Hematocrit 26.4 % (37.5-50.1); Immature Granulocytes % 0.2 % (0-4); Immature Platelets 10.5 % (1.1-6.1); Lymphocytes # 1.8 K/mcL (0.6-4.6); Lymphocytes % 38.9 %; Mean Corpuscular HGB Conc 30.3 g/dL (31.6-35.5); Mean Platelet Volume 12.1 fL (9.4-12.4); Monocytes # 0.4 K/mcL (0.0-1.3); Monocytes % 8.3 %; Neutrophils # 2.2 K/mcL (1.6-8.9); Red Blood Count 2.76 M/mcL (4.19-5.50); Segmented Neutrophils % 47.1 %; White Blood Count 4.7 K/mcL (4.3-11.1)
[2020-07-31 03:40] LABS: Platelet Count 46 K/mcL (140-400)
[2020-07-31 03:52] LABS: BUN/Creatinine Ratio 13 (6-26); Blood Urea Nitrogen 18 mg/dL (8-23); Carbon Dioxide 24 mEq/L (23-29); Chloride 109 mEq/L (98-107); Glucose 98 mg/dL (70-105); Osmolality,Calculated 290 (280-300); Sodium 139 mEq/L (136-145); eGFR For African Americans > 60 (> 60); eGFR For Non-African Americans 53 (> 60)
[2020-07-31 04:08] LABS: Anisocytosis 1+ (Not Present); Hypochromasia Present (Not Present); Platelet Estimate Decreased (Normal)
[2020-07-31] MEDS: Insulin LISPRO 300 UNITS/3 ML VIAL SUBQ SCH ×4 (07:43→18:58)
[2020-07-31] MEDS: Furosemide 40 MG TABLET PO SCH ×2 (08:49→18:48)
[2020-07-31] MEDS: Lactulose Oral Soln 20 GM/30 ML UDC PO SCH ×3 (08:49→20:43)
[2020-08-01] MEDS: Insulin LISPRO 300 UNITS/3 ML VIAL SUBQ SCH ×4 (03:18→17:01)
[2020-08-01 06:51] LABS: White Blood Count 5.3 K/mcL (4.3-11.1)
[2020-08-01 06:53] LABS: Basophils # 0.1 K/mcL (0.0-0.2); Basophils % 1.3 %; Eosinophils # 0.2 K/mcL (0.0-0.6); Eosinophils % 4.4 %; Hematocrit 27.9 % (37.5-50.1); Hemoglobin 8.5 g/dL (12.9-16.9); Immature Granulocytes % 0.4 % (0-4); Immature Platelets 7.1 % (1.1-6.1); Lymphocytes # 2.1 K/mcL (0.6-4.6); Lymphocytes % 40.4 %; Mean Corpuscular HGB Conc 30.5 g/dL (31.6-35.5); Mean Corpuscular Hemoglobin 28.8 pg (28.0-33.3); Mean Corpuscular Volume 94.6 fL (83.0-100.0); Monocytes # 0.4 K/mcL (0.0-1.3); Monocytes % 7.6 %; Neutrophils # 2.4 K/mcL (1.6-8.9); Red Blood Count 2.95 M/mcL (4.19-5.50); Red Cell Distribution Width 22.3 % (11.5-14.5); Segmented Neutrophils % 45.9 %
[2020-08-01 07:03] LABS: BUN/Creatinine Ratio 12 (6-26); Blood Urea Nitrogen 17 mg/dL (8-23); Calcium 8.7 mg/dL (8.6-10.3); Carbon Dioxide 30 mEq/L (23-29); Chloride 104 mEq/L (98-107); Glucose 101 mg/dL (70-105); Osmolality,Calculated 290 (280-300); Potassium 3.6 mEq/L (3.5-5.1); Sodium 139 mEq/L (136-145); eGFR For African Americans > 60 (> 60); eGFR For Non-African Americans 51 (> 60)
[2020-08-01 07:05] LABS: Platelet Count 59 K/mcL (140-400)
[2020-08-01 07:39] LABS: Platelet Estimate Decreased (Normal); Reactive Lymphocytes Present (Not Present)
[2020-08-01] MEDS: Furosemide 40 MG TABLET PO SCH ×2 (08:01→16:00)
[2020-08-01] MEDS: Lactulose Oral Soln 20 GM/30 ML UDC PO SCH ×3 (08:02→21:22)
[2020-08-02] MEDS: Insulin LISPRO 300 UNITS/3 ML VIAL SUBQ SCH ×3 (00:43→13:24)
[2020-08-02] MEDS: Lactulose Oral Soln 20 GM/30 ML UDC PO SCH ×3 (08:52→20:38)
[2020-08-02] MEDS: Furosemide 40 MG TABLET PO SCH ×2 (08:52→16:30)
[2020-08-02] MEDS: Gabapentin 100 MG CAPSULE PO SCH ×3 (08:58→20:38)
[2020-08-03] MEDS: Furosemide 40 MG TABLET PO SCH ×2 (08:26→16:34)
[2020-08-03] MEDS: Gabapentin 100 MG CAPSULE PO SCH ×3 (08:26→20:25)
[2020-08-03] MEDS: Lactulose Oral Soln 20 GM/30 ML UDC PO SCH ×3 (08:26→20:25)
[2020-08-04 03:31] VITALS: BP 117/68
[2020-08-04] MEDS: Lactulose Oral Soln 20 GM/30 ML UDC PO SCH ×2 (08:35→14:30)
[2020-08-04] MEDS: Gabapentin 100 MG CAPSULE PO SCH ×2 (08:35→14:30)
[2020-08-04] MEDS: Furosemide 40 MG TABLET PO SCH (08:35)
[2020-08-04 12:35] LABS: Adenovirus Not Detected (Not Detect); Bordetella Pertussis Not Detected (Not Detect); Chlamydophila pneumoniae Not Detected (Not Detect); Coronavirus 229E Not Detected (Not Detect); Coronavirus HKU1 Not Detected (Not Detect); Coronavirus NL63 Not Detected (Not Detect); Coronavirus OC43 Not Detected (Not Detect); Human Metapneumovirus Not Detected (Not Detect); Human Rhinovirus/Enterovirus Not Detected (Not Detect); Influenza A Subtype 2009 H1 Not Detected (Not Detect); Influenza B Not Detected (Not Detect); Mycoplasma pneumoniae Not Detected (Not Detect); Parainfluenza Virus 1 Not Detected (Not Detect); Parainfluenza Virus 2 Not Detected (Not Detect); Parainfluenza Virus 3 Not Detected (Not Detect); Parainfluenza Virus 4 Not Detected (Not Detect); Respiratory Syncytial Virus Not Detected (Not Detect); SARS-CoV-2 Not Detected (Not Detect)
== END 2020-08-04 15:17 | disposition other institution (70) | DRG 442 ==
LOC: CDU → SUATTDRO 07-30 00:15 → 3ANU 07-31 17:34
PROVIDERS: ADMIT Internal Medicine; ATTEND Student in an Organized Health Care Education/Training Program

== ENCOUNTER 2020-11-03 20:15 | Inpatient (IN) ==
[2020-11-03] MEDS ORDERED: Naloxone 0.4 MG/ML INJ IVP PRN (23:47)
[2020-11-03] MEDS ORDERED: Ondansetron 4 MG/2 ML VIAL IVP PRN (23:57)
[2020-11-04 00:53] LABS: Mean Corpuscular HGB Conc 30.7 g/dL (31.6-35.5)
[2020-11-04 00:55] LABS: Basophils % 0.8 %; Eosinophils # 0.1 K/mcL (0.0-0.6); Hematocrit 21.5 % (37.5-50.1); Hemoglobin 6.6 g/dL (12.9-16.9); Immature Granulocytes % 0.4 % (0-4); Immature Platelets 7.4 % (1.1-6.1); Lymphocytes # 1.3 K/mcL (0.6-4.6); Lymphocytes % 27.7 %; Mean Corpuscular Hemoglobin 29.7 pg (28.0-33.3); Mean Corpuscular Volume 96.8 fL (83.0-100.0); Mean Platelet Volume 12.7 fL (9.4-12.4); Monocytes # 0.6 K/mcL (0.0-1.3); Monocytes % 13.1 %; Neutrophils # 2.7 K/mcL (1.6-8.9); Red Blood Count 2.22 M/mcL (4.19-5.50); Red Cell Distribution Width 16.6 % (11.5-14.5); White Blood Count 4.8 K/mcL (4.3-11.1)
[2020-11-04 00:57] LABS: Platelet Count 53 K/mcL (140-400)
[2020-11-04 01:02] LABS: INR 1.3; Prothrombin Time 14.8 Seconds (9.4-12.1)
[2020-11-04 01:09] LABS: Albumin/Globulin Ratio 0.9 (1.1-2.2); Bilirubin,Total 1.7 mg/dL (0.3-1.0); Calcium 8.9 mg/dL (8.6-10.3); Globulin 3.4 g/dL (2.4-3.5); Potassium 5.6 mEq/L (3.5-5.1); Total Protein 6.4 g/dL (6.4-8.9)
[2020-11-04 01:10] LABS: Magnesium 2.1 mg/dL (1.6-2.6); Potassium 5.6 mEq/L (3.5-5.1)
[2020-11-04] MEDS ORDERED: Insulin Human Regular 10 UNIT in 0.9 % Sodium Chloride 10 ML IV ONE (01:14)
[2020-11-04] MEDS ORDERED: *HR* Dextrose 50 % in Water (Vial) 50 ML VIAL IVP ONE (01:14)
[2020-11-04] MEDS ORDERED: 0.9 % Sodium Chloride 250 ML ONE (02:23)
[2020-11-04] MEDS ORDERED: Dextrose Gel 15 GM/37.5 ML TUBE PO PRN ×2 (03:08)
[2020-11-04] MEDS ORDERED: D5% in Water 1,000 ML IVC PRN (03:08)
[2020-11-04] MEDS ORDERED: *HR* Dextrose 50 % in Water (Vial) 50 ML VIAL IVP PRN (03:08)
[2020-11-04] MEDS: Calcium Gluconate 1gm/50mL 1 GM/50 ML BAG IVPB SCH ×2 (03:13→04:07)
[2020-11-04] MEDS: Lactulose Oral Soln 20 GM/30 ML UDC PO SCH ×4 (04:08→20:03)
[2020-11-04] MEDS: Insulin LISPRO 300 UNITS/3 ML VIAL SUBQ SCH ×3 (05:40→17:30)
[2020-11-04] MEDS: Pantoprazole 40 MG VIAL IVP SCH ×2 (06:39→16:34)
[2020-11-04] MEDS ORDERED: 0.9 % Sodium Chloride 1,000 ML ONE (07:27)
[2020-11-04] MEDS ORDERED: SODIUM ZIRCONIUM CYCLOSILICATE 5 GM POWD.PACK PO SCH (09:00)
[2020-11-04] MEDS ORDERED: Furosemide 40 MG/4 ML VIAL IVP STA (09:10)
[2020-11-04] MEDS: Ipratropium/Albuterol Neb 3 ML IH PRN (10:50)
[2020-11-04 12:03] LABS: % Iron Saturation 89 % (20-55); Iron 346 mcg/dL (65-175); Transferrin 279 mg/dL (203-362)
[2020-11-04] MEDS: Sodium Bicarbonate 150 MEQ in Water for inj. (sterile) 1,000 ML IVC SCH ×2 (12:08→20:04)
[2020-11-04 12:25] LABS: Folate 9.8 ng/mL (3.0-16.0)
[2020-11-04 13:20] LABS: Hematocrit 23.9 % (37.5-50.1); Hemoglobin 7.5 g/dL (12.9-16.9)
[2020-11-04 15:46] LABS: Protein/Creatinine Ratio,Urine 0.62 mg/mg (0.00-0.20); Sodium, Urine 51.3 mEq/L
[2020-11-04 15:53] LABS: Bacteria,Urine Few per hpf (None-Few); Bilirubin,Urine Negative (Negative); Blood,Urine Moderate (Negative); Clarity,Urine Clear (Clear); Color,Urine Light-Yellow (Yellow); Glucose,Urine (UA) Normal (Normal); Hyaline Casts,Urine Moderate per lpf (None Seen); Ketones,Urine Negative (Negative); Leukocyte Esterase,Urine Moderate (Negative); Mucus,Urine Few per lpf (None-Few); Nitrite,Urine Negative (Negative); PH,Urine 5.5 pH Units (5.0-8.0); Protein,Urine Trace mg/dL (Neg-Trace); RBC,Urine 15-30 per hpf (0-3); Specific Gravity,Urine 1.011 (1.010-1.025); Squamous Epithelial Cell,Urine Few per hpf (None-Few); Transitional Epi Cells,Urine Few per hpf (None-Few); Urobilinogen,Urine Normal (Normal)
[2020-11-04] MEDS: Albumin 25% 25gram/100mL 25 GM/100 ML IV.SOLN IVPB SCH (16:34)
[2020-11-04] MEDS ORDERED: SODIUM CHLORIDE/NAHCO3/KCL/PEG 4,000 ML SOLN.RECON PO ONE (17:00)
[2020-11-05] MEDS: Albumin 25% 25gram/100mL 25 GM/100 ML IV.SOLN IVPB SCH ×4 (00:04→23:49)
[2020-11-05] MEDS: Insulin LISPRO 300 UNITS/3 ML VIAL SUBQ SCH ×5 (00:21→23:56)
[2020-11-05 02:47] LABS: Basophils # 0.1 K/mcL (0.0-0.2); Basophils % 0.9 %; Eosinophils # 0.1 K/mcL (0.0-0.6); Hematocrit 23.2 % (37.5-50.1); Hemoglobin 7.2 g/dL (12.9-16.9); Immature Granulocytes % 0.2 % (0-4); Immature Platelets 7.1 % (1.1-6.1); Lymphocytes # 1.5 K/mcL (0.6-4.6); Mean Corpuscular Volume 96.7 fL (83.0-100.0); Monocytes # 0.7 K/mcL (0.0-1.3); Monocytes % 11.9 %; Neutrophils # 3.3 K/mcL (1.6-8.9); Platelet Count 51 K/mcL (140-400); Red Cell Distribution Width 16.3 % (11.5-14.5); White Blood Count 5.6 K/mcL (4.3-11.1)
[2020-11-05 03:07] LABS: Albumin 3.2 g/dL (3.5-5.7); Albumin/Globulin Ratio 0.9 (1.1-2.2); Bilirubin,Direct 0.6 mg/dL (0.0-0.2); Bilirubin,Indirect 1.3 mg/dL (0.0-1.0); Bilirubin,Total 1.9 mg/dL (0.3-1.0); Calcium 8.8 mg/dL (8.6-10.3); Globulin 3.6 g/dL (2.4-3.5); Magnesium 2.3 mg/dL (1.6-2.6); Potassium 4.7 mEq/L (3.5-5.1); Total Protein 6.8 g/dL (6.4-8.9)
[2020-11-05] MEDS: Pantoprazole 40 MG VIAL IVP SCH ×2 (06:12→15:12)
[2020-11-05] MEDS: Ammonium Lactate 30 APPL/225 GM BOTTLE TP SCH ×2 (10:16→20:46)
[2020-11-05] MEDS: Ergocalciferol (VIT D2) 50,000 UNIT (1.25MG) CAP PO SCH (10:16)
[2020-11-05] MEDS: Nicotine 14 MG PATCH.TD24 TD SCH (10:17)
[2020-11-05] MEDS: Lactulose Oral Soln 20 GM/30 ML UDC PO SCH ×3 (10:18→20:41)
[2020-11-05] MEDS: Finasteride 5 MG TABLET PO SCH (10:19)
[2020-11-05] MEDS: calcitrioL 0.25 MCG CAPSULE PO SCH (10:19)
[2020-11-05] MEDS: Gabapentin 100 MG CAPSULE PO SCH ×3 (10:19→20:41)
[2020-11-05] MEDS: CALCIFEDIOL 30 MCG PO SCH (10:26)
[2020-11-05] MEDS: Sodium Bicarbonate 150 MEQ in Water for inj. (sterile) 1,000 ML IVC SCH (11:08)
[2020-11-05] MEDS: Loratadine 10 MG TABLET PO SCH (20:41)
[2020-11-06 03:46] LABS: Basophils % 0.6 %; Hemoglobin 7.3 g/dL (12.9-16.9); Immature Granulocytes % 0.2 % (0-4)
[2020-11-06 03:47] LABS: Eosinophils # 0.1 K/mcL (0.0-0.6); Eosinophils % 2.4 %; Lymphocytes # 1.3 K/mcL (0.6-4.6); Lymphocytes % 26.1 %; Mean Corpuscular HGB Conc 31.7 g/dL (31.6-35.5); Mean Corpuscular Hemoglobin 30.9 pg (28.0-33.3); Mean Corpuscular Volume 97.5 fL (83.0-100.0); Mean Platelet Volume 12.9 fL (9.4-12.4); Monocytes # 0.5 K/mcL (0.0-1.3); Monocytes % 10.6 %; Red Blood Count 2.36 M/mcL (4.19-5.50); Red Cell Distribution Width 16.6 % (11.5-14.5); Segmented Neutrophils % 60.1 %
[2020-11-06 03:50] LABS: Platelet Count 47 K/mcL (140-400)
[2020-11-06 04:06] LABS: Calcium 8.9 mg/dL (8.6-10.3); Magnesium 2.3 mg/dL (1.6-2.6); Potassium 4.3 mEq/L (3.5-5.1)
[2020-11-06] MEDS: Pantoprazole 40 MG VIAL IVP SCH ×2 (05:41→17:04)
[2020-11-06] MEDS: Insulin LISPRO 300 UNITS/3 ML VIAL SUBQ SCH ×3 (05:45→17:04)
[2020-11-06] MEDS ORDERED: Lidocaine -MPF 2% 5 ML VIAL ONE ×2 (07:40)
[2020-11-06] MEDS ORDERED: *HR* Propofol 200 MG/20 ML VIAL IVP ONE (07:43)
[2020-11-06] MEDS ORDERED: Lidocaine HCL 4 ML Topical Solution (Laryng-O-Jet Kit Sterile Pak) TP ONE (08:03)
[2020-11-06] MEDS ORDERED: Ondansetron 4 MG/2 ML VIAL ONE (08:06)
[2020-11-06] MEDS ORDERED: *HR* FentaNYL (PF) 100 MCG/2 ML VIAL ONE (08:08)
[2020-11-06] MEDS ORDERED: *HR* Vasopressin 20 UNIT/ML VIAL ONE (08:09)
[2020-11-06] MEDS ORDERED: Ondansetron 4 MG/2 ML VIAL IVP PRN (09:29)
[2020-11-06] MEDS: Nicotine 14 MG PATCH.TD24 TD SCH (10:09)
[2020-11-06] MEDS: Lactulose Oral Soln 20 GM/30 ML UDC PO SCH ×3 (10:09→23:19)
[2020-11-06] MEDS: Albumin 25% 25gram/100mL 25 GM/100 ML IV.SOLN IVPB SCH ×3 (10:09→23:20)
[2020-11-06] MEDS: Gabapentin 100 MG CAPSULE PO SCH ×3 (10:09→23:19)
[2020-11-06] MEDS: Finasteride 5 MG TABLET PO SCH (10:09)
[2020-11-06] MEDS: CALCIFEDIOL 30 MCG PO SCH (10:12)
[2020-11-06] MEDS: Ammonium Lactate 30 APPL/225 GM BOTTLE TP SCH ×2 (10:12→23:20)
[2020-11-06] MEDS: Loratadine 10 MG TABLET PO SCH (23:19)
[2020-11-07] MEDS: Insulin LISPRO 300 UNITS/3 ML VIAL SUBQ SCH ×5 (01:12→16:21)
[2020-11-07 02:25] LABS: Basophils % 0.2 %; Eosinophils # 0.2 K/mcL (0.0-0.6); Eosinophils % 3.4 %; Hematocrit 22.2 % (37.5-50.1); Hemoglobin 6.9 g/dL (12.9-16.9); Immature Granulocytes % 0.4 % (0-4); Lymphocytes # 0.8 K/mcL (0.6-4.6); Lymphocytes % 13.7 %; Mean Corpuscular HGB Conc 31.1 g/dL (31.6-35.5); Mean Corpuscular Hemoglobin 30.7 pg (28.0-33.3); Mean Corpuscular Volume 98.7 fL (83.0-100.0); Mean Platelet Volume 13.4 fL (9.4-12.4); Monocytes # 0.4 K/mcL (0.0-1.3); Monocytes % 7.2 %; Red Blood Count 2.25 M/mcL (4.19-5.50); Red Cell Distribution Width 16.7 % (11.5-14.5); Segmented Neutrophils % 75.1 %; White Blood Count 5.5 K/mcL (4.3-11.1)
[2020-11-07 02:26] LABS: Neutrophils # 4.1 K/mcL (1.6-8.9); Platelet Count 40 K/mcL (140-400)
[2020-11-07 02:41] LABS: Calcium 8.9 mg/dL (8.6-10.3); Magnesium 2.2 mg/dL (1.6-2.6); Phosphorous 2.9 mg/dL (2.7-4.5); Potassium 4.6 mEq/L (3.5-5.1)
[2020-11-07] MEDS: Pantoprazole 40 MG VIAL IVP SCH (06:04)
[2020-11-07] MEDS ORDERED: 0.9 % Sodium Chloride 250 ML IVC SCH (08:00)
[2020-11-07] MEDS: calcitrioL 0.25 MCG CAPSULE PO SCH (09:05)
[2020-11-07] MEDS: Albumin 25% 25gram/100mL 25 GM/100 ML IV.SOLN IVPB SCH ×2 (09:05→15:42)
[2020-11-07] MEDS: Lactulose Oral Soln 20 GM/30 ML UDC PO SCH ×3 (09:05→20:14)
[2020-11-07] MEDS: Gabapentin 100 MG CAPSULE PO SCH ×3 (09:06→20:15)
[2020-11-07] MEDS: Nicotine 14 MG PATCH.TD24 TD SCH (09:06)
[2020-11-07] MEDS: Finasteride 5 MG TABLET PO SCH (09:06)
[2020-11-07] MEDS: CALCIFEDIOL 30 MCG PO SCH (09:08)
[2020-11-07] MEDS: Ammonium Lactate 30 APPL/225 GM BOTTLE TP SCH ×2 (09:08→20:17)
[2020-11-07] MEDS: Loratadine 10 MG TABLET PO SCH (20:14)
[2020-11-07] MEDS ORDERED: Acetaminophen 325 MG TABLET PO ONE (21:23)
[2020-11-08] MEDS: Insulin LISPRO 300 UNITS/3 ML VIAL SUBQ SCH ×3 (09:37→17:49)
[2020-11-08] MEDS: Ammonium Lactate 30 APPL/225 GM BOTTLE TP SCH ×2 (10:04→20:51)
[2020-11-08] MEDS: Finasteride 5 MG TABLET PO SCH (10:05)
[2020-11-08] MEDS: Gabapentin 100 MG CAPSULE PO SCH ×3 (10:05→20:51)
[2020-11-08] MEDS: Nicotine 14 MG PATCH.TD24 TD SCH (10:06)
[2020-11-08] MEDS: Lactulose Oral Soln 20 GM/30 ML UDC PO SCH ×3 (10:06→20:51)
[2020-11-08] MEDS: CALCIFEDIOL 30 MCG PO SCH (10:11)
[2020-11-08 12:17] LABS: Basophils % 0.7 %; Eosinophils # 0.1 K/mcL (0.0-0.6); Eosinophils % 1.9 %; Hematocrit 22.3 % (37.5-50.1); Hemoglobin 6.9 g/dL (12.9-16.9); Immature Granulocytes % 0.8 % (0-4); Immature Platelets 8.9 % (1.1-6.1); Lymphocytes # 1.4 K/mcL (0.6-4.6); Lymphocytes % 23.4 %; Mean Corpuscular HGB Conc 30.9 g/dL (31.6-35.5); Mean Corpuscular Hemoglobin 30.1 pg (28.0-33.3); Mean Corpuscular Volume 97.4 fL (83.0-100.0); Mean Platelet Volume 12.9 fL (9.4-12.4); Monocytes # 0.7 K/mcL (0.0-1.3); Monocytes % 11.6 %; Red Blood Count 2.29 M/mcL (4.19-5.50); Red Cell Distribution Width 16.8 % (11.5-14.5); Segmented Neutrophils % 61.6 %; White Blood Count 5.9 K/mcL (4.3-11.1)
[2020-11-08 12:18] LABS: Neutrophils # 3.6 K/mcL (1.6-8.9); Platelet Count 41 K/mcL (140-400)
[2020-11-08 12:39] LABS: Magnesium 2.2 mg/dL (1.6-2.6); Potassium 4.3 mEq/L (3.5-5.1)
[2020-11-08] MEDS: Loratadine 10 MG TABLET PO SCH (20:51)
[2020-11-09 05:40] LABS: Magnesium 2.2 mg/dL (1.6-2.6); Potassium 4.2 mEq/L (3.5-5.1)
[2020-11-09] MEDS: Nicotine 14 MG PATCH.TD24 TD SCH (08:25)
[2020-11-09] MEDS: Finasteride 5 MG TABLET PO SCH (08:28)
[2020-11-09] MEDS: Gabapentin 100 MG CAPSULE PO SCH ×3 (08:28→20:44)
[2020-11-09] MEDS: calcitrioL 0.25 MCG CAPSULE PO SCH (08:28)
[2020-11-09] MEDS: Lactulose Oral Soln 20 GM/30 ML UDC PO SCH ×3 (08:29→20:45)
[2020-11-09] MEDS: Ipratropium/Albuterol Neb 3 ML IH PRN (08:29)
[2020-11-09] MEDS: Ergocalciferol (VIT D2) 50,000 UNIT (1.25MG) CAP PO SCH (08:30)
[2020-11-09] MEDS: Ammonium Lactate 30 APPL/225 GM BOTTLE TP SCH ×2 (08:30→20:43)
[2020-11-09] MEDS: CALCIFEDIOL 30 MCG PO SCH (08:31)
[2020-11-09] MEDS: Insulin LISPRO 300 UNITS/3 ML VIAL SUBQ SCH ×3 (08:37→17:22)
[2020-11-09 12:03] LABS: Basophils % 0.5 %; Eosinophils # 0.2 K/mcL (0.0-0.6); Eosinophils % 2.6 %; Hematocrit 22.1 % (37.5-50.1); Hemoglobin 6.9 g/dL (12.9-16.9); Immature Granulocytes % 0.3 % (0-4); Lymphocytes # 1.3 K/mcL (0.6-4.6); Lymphocytes % 22.7 %; Mean Corpuscular HGB Conc 31.2 g/dL (31.6-35.5); Mean Corpuscular Hemoglobin 31.2 pg (28.0-33.3); Mean Platelet Volume 14.1 fL (9.4-12.4); Monocytes # 0.6 K/mcL (0.0-1.3); Monocytes % 10.7 %; Neutrophils # 3.6 K/mcL (1.6-8.9); Red Blood Count 2.21 M/mcL (4.19-5.50); Red Cell Distribution Width 17.2 % (11.5-14.5); Segmented Neutrophils % 63.2 %; White Blood Count 5.7 K/mcL (4.3-11.1)
[2020-11-09 12:10] LABS: Platelet Count 37 K/mcL (140-400)
[2020-11-09] MEDS: Loratadine 10 MG TABLET PO SCH (20:44)
[2020-11-10 04:03] LABS: Basophils % 0.6 %; Immature Granulocytes % 0.7 % (0-4); Mean Corpuscular Hemoglobin 31.6 pg (28.0-33.3); Red Cell Distribution Width 17.2 % (11.5-14.5)
[2020-11-10 04:04] LABS: Eosinophils # 0.3 K/mcL (0.0-0.6); Eosinophils % 3.8 %; Hematocrit 22.5 % (37.5-50.1); Hemoglobin 7.1 g/dL (12.9-16.9); Immature Platelets 8.1 % (1.1-6.1); Lymphocytes # 1.8 K/mcL (0.6-4.6); Lymphocytes % 25.3 %; Mean Corpuscular HGB Conc 31.6 g/dL (31.6-35.5); Mean Platelet Volume 12.2 fL (9.4-12.4); Monocytes # 0.7 K/mcL (0.0-1.3); Monocytes % 9.7 %; Red Blood Count 2.25 M/mcL (4.19-5.50); Segmented Neutrophils % 59.9 %; White Blood Count 6.9 K/mcL (4.3-11.1)
[2020-11-10 04:18] LABS: Magnesium 2.2 mg/dL (1.6-2.6); Potassium 4.3 mEq/L (3.5-5.1)
[2020-11-10 04:21] LABS: Neutrophils # 4.1 K/mcL (1.6-8.9); Platelet Count 49 K/mcL (140-400)
[2020-11-10] MEDS: Insulin LISPRO 300 UNITS/3 ML VIAL SUBQ SCH ×3 (07:32→16:56)
[2020-11-10] MEDS: Lactulose Oral Soln 20 GM/30 ML UDC PO SCH ×3 (07:52→21:17)
[2020-11-10] MEDS: Nicotine 14 MG PATCH.TD24 TD SCH (07:52)
[2020-11-10] MEDS: Finasteride 5 MG TABLET PO SCH (07:53)
[2020-11-10] MEDS: Gabapentin 100 MG CAPSULE PO SCH ×3 (07:53→21:19)
[2020-11-10] MEDS: CALCIFEDIOL 30 MCG PO SCH (07:58)
[2020-11-10] MEDS: Ipratropium/Albuterol Neb 3 ML IH PRN (08:18)
[2020-11-10] MEDS: Ammonium Lactate 30 APPL/225 GM BOTTLE TP SCH ×2 (11:44→21:20)
[2020-11-10] MEDS: Loratadine 10 MG TABLET PO SCH (21:19)
[2020-11-11 06:58] LABS: Basophils % 0.5 %; Hemoglobin 6.9 g/dL (12.9-16.9); Immature Granulocytes % 0.7 % (0-4); Mean Corpuscular Volume 99.6 fL (83.0-100.0)
[2020-11-11 07:00] LABS: Eosinophils # 0.3 K/mcL (0.0-0.6); Eosinophils % 4.4 %; Hematocrit 22.4 % (37.5-50.1); Lymphocytes # 1.4 K/mcL (0.6-4.6); Lymphocytes % 22.8 %; Mean Corpuscular HGB Conc 30.8 g/dL (31.6-35.5); Mean Corpuscular Hemoglobin 30.7 pg (28.0-33.3); Mean Platelet Volume 12.2 fL (9.4-12.4); Monocytes # 0.6 K/mcL (0.0-1.3); Monocytes % 9.9 %; Neutrophils # 3.7 K/mcL (1.6-8.9); Red Blood Count 2.25 M/mcL (4.19-5.50); Red Cell Distribution Width 17.3 % (11.5-14.5); Segmented Neutrophils % 61.7 %
[2020-11-11 07:01] LABS: Platelet Count 47 K/mcL (140-400)
[2020-11-11 07:19] LABS: Magnesium 2.2 mg/dL (1.6-2.6); Potassium 4.4 mEq/L (3.5-5.1)
[2020-11-11] MEDS: Insulin LISPRO 300 UNITS/3 ML VIAL SUBQ SCH ×3 (07:44→16:53)
[2020-11-11] MEDS: Finasteride 5 MG TABLET PO SCH (08:22)
[2020-11-11] MEDS: Gabapentin 100 MG CAPSULE PO SCH ×3 (08:22→21:08)
[2020-11-11] MEDS: Lactulose Oral Soln 20 GM/30 ML UDC PO SCH ×3 (08:22→21:08)
[2020-11-11] MEDS: calcitrioL 0.25 MCG CAPSULE PO SCH (08:22)
[2020-11-11] MEDS: CALCIFEDIOL 30 MCG PO SCH (08:23)
[2020-11-11] MEDS: Nicotine 14 MG PATCH.TD24 TD SCH (08:24)
[2020-11-11] MEDS: Ammonium Lactate 30 APPL/225 GM BOTTLE TP SCH ×2 (09:21→21:08)
[2020-11-11 10:55] LABS: Calcium 8.9 mg/dL (8.6-10.3)
[2020-11-11 12:09] LABS: INR 1.4; Prothrombin Time 16.1 Seconds (9.4-12.1)
[2020-11-11 13:21] LABS: Albumin 3.4 g/dL (3.5-5.7); Bilirubin,Direct 0.4 mg/dL (0.0-0.2); Bilirubin,Indirect 0.7 mg/dL (0.0-1.0); Bilirubin,Total 1.1 mg/dL (0.3-1.0); Globulin 3.3 g/dL (2.4-3.5); Total Protein 6.7 g/dL (6.4-8.9)
[2020-11-11] MEDS: Albumin 25% 25gram/100mL 25 GM/100 ML IV.SOLN IVPB SCH (17:01)
[2020-11-11] MEDS: Furosemide 20 MG/2 ML VIAL IVP SCH (21:07)
[2020-11-11] MEDS: Loratadine 10 MG TABLET PO SCH (21:07)
[2020-11-11 21:38] LABS: Hematocrit 24.7 % (37.5-50.1)
[2020-11-11 21:40] LABS: Hemoglobin 7.5 g/dL (12.9-16.9)
[2020-11-12] MEDS: Ipratropium/Albuterol Neb 3 ML IH PRN ×2 (02:19→20:42)
[2020-11-12 03:53] LABS: Basophils % 0.6 %; Immature Granulocytes % 0.4 % (0-4)
[2020-11-12 03:55] LABS: Eosinophils # 0.3 K/mcL (0.0-0.6); Eosinophils % 5.6 %; Hematocrit 24.2 % (37.5-50.1); Hemoglobin 7.4 g/dL (12.9-16.9); Immature Platelets 7.7 % (1.1-6.1); Lymphocytes # 1.2 K/mcL (0.6-4.6); Lymphocytes % 23.9 %; Mean Corpuscular HGB Conc 30.6 g/dL (31.6-35.5); Mean Corpuscular Hemoglobin 30.3 pg (28.0-33.3); Mean Corpuscular Volume 99.2 fL (83.0-100.0); Mean Platelet Volume 11.8 fL (9.4-12.4); Monocytes # 0.5 K/mcL (0.0-1.3); Neutrophils # 2.9 K/mcL (1.6-8.9); Red Blood Count 2.44 M/mcL (4.19-5.50); Red Cell Distribution Width 17.8 % (11.5-14.5); Segmented Neutrophils % 59.5 %; White Blood Count 4.8 K/mcL (4.3-11.1)
[2020-11-12 03:58] LABS: Platelet Count 44 K/mcL (140-400)
[2020-11-12 04:14] LABS: INR 1.5; Prothrombin Time 16.6 Seconds (9.4-12.1)
[2020-11-12 04:17] LABS: Albumin 3.7 g/dL (3.5-5.7); Albumin/Globulin Ratio 1.2 (1.1-2.2); Bilirubin,Total 1.6 mg/dL (0.3-1.0); Calcium 9.1 mg/dL (8.6-10.3); Globulin 3.1 g/dL (2.4-3.5); Phosphorous 3.3 mg/dL (2.7-4.5); Potassium 4.2 mEq/L (3.5-5.1); Total Protein 6.8 g/dL (6.4-8.9)
[2020-11-12 04:19] LABS: Iron 49 mcg/dL (65-175)
[2020-11-12 04:31] LABS: % Iron Saturation 16 % (20-55); Transferrin 221 mg/dL (203-362)
[2020-11-12 04:39] LABS: Ferritin 38 ng/mL (20-250)
[2020-11-12 04:43] LABS: Folate 7.5 ng/mL (3.0-16.0)
[2020-11-12 04:51] LABS: Estimated Average Glucose 114 mg/dl; Hemoglobin A1C 5.6 %
[2020-11-12] MEDS: Albumin 25% 25gram/100mL 25 GM/100 ML IV.SOLN IVPB SCH ×2 (05:27→16:23)
[2020-11-12] MEDS: Furosemide 20 MG/2 ML VIAL IVP SCH ×2 (07:49→18:14)
[2020-11-12] MEDS: Insulin LISPRO 300 UNITS/3 ML VIAL SUBQ SCH ×3 (08:35→16:18)
[2020-11-12] MEDS: Gabapentin 100 MG CAPSULE PO SCH ×3 (08:40→20:46)
[2020-11-12] MEDS: Finasteride 5 MG TABLET PO SCH (08:40)
[2020-11-12] MEDS: Spironolactone 25 MG TABLET PO SCH (08:40)
[2020-11-12] MEDS: Lactulose Oral Soln 20 GM/30 ML UDC PO SCH ×3 (08:40→20:46)
[2020-11-12] MEDS: carvediloL 6.25 MG TABLET PO SCH ×2 (08:40→16:23)
[2020-11-12] MEDS: CALCIFEDIOL 30 MCG PO SCH (08:41)
[2020-11-12] MEDS: Nicotine 14 MG PATCH.TD24 TD SCH (08:41)
[2020-11-12] MEDS: Ammonium Lactate 30 APPL/225 GM BOTTLE TP SCH ×2 (08:41→20:47)
[2020-11-12] MEDS ORDERED: Iron Sucrose Complex 400 MG in 0.9 % Sodium Chloride 250 ML IVPB ONE (16:00)
[2020-11-12] MEDS: Loratadine 10 MG TABLET PO SCH (20:46)
[2020-11-13 03:20] LABS: Basophils % 0.9 %; Hemoglobin 7.5 g/dL (12.9-16.9); Immature Granulocytes % 0.5 % (0-4); Monocytes % 9.7 %
[2020-11-13 03:23] LABS: Eosinophils # 0.4 K/mcL (0.0-0.6); Eosinophils % 8.4 %; Hematocrit 24.7 % (37.5-50.1); Lymphocytes % 23.4 %; Mean Corpuscular HGB Conc 30.4 g/dL (31.6-35.5); Mean Corpuscular Hemoglobin 30.6 pg (28.0-33.3); Mean Corpuscular Volume 100.8 fL (83.0-100.0); Mean Platelet Volume 12.7 fL (9.4-12.4); Monocytes # 0.4 K/mcL (0.0-1.3); Neutrophils # 2.5 K/mcL (1.6-8.9); Red Blood Count 2.45 M/mcL (4.19-5.50); Red Cell Distribution Width 17.9 % (11.5-14.5); Segmented Neutrophils % 57.1 %; White Blood Count 4.3 K/mcL (4.3-11.1)
[2020-11-13 03:25] LABS: Platelet Count 41 K/mcL (140-400)
[2020-11-13 03:36] LABS: Albumin 3.8 g/dL (3.5-5.7); Albumin/Globulin Ratio 1.2 (1.1-2.2); Bilirubin,Total 1.6 mg/dL (0.3-1.0); Calcium 9.2 mg/dL (8.6-10.3); Globulin 3.2 g/dL (2.4-3.5); Phosphorous 3.1 mg/dL (2.7-4.5); Potassium 4.3 mEq/L (3.5-5.1)
[2020-11-13] MEDS: Albumin 25% 25gram/100mL 25 GM/100 ML IV.SOLN IVPB SCH (05:35)
[2020-11-13] MEDS ORDERED: *HR* Propofol 200 MG/20 ML VIAL IVP ONE (08:13)
[2020-11-13] MEDS ORDERED: Lidocaine -MPF 2% 5 ML VIAL ONE (08:13)
[2020-11-13] MEDS ORDERED: *HR* Midazolam HCl 2 MG/2 ML VIAL ONE (08:20)
[2020-11-13] MEDS ORDERED: Ketamine *HR* 500 MG/10 ML MDV ONE (08:24)
[2020-11-13] MEDS: Multivit/Ca/Min/Fe/FA 1 TAB TABLET PO SCH (11:50)
[2020-11-13] MEDS: carvediloL 6.25 MG TABLET PO SCH ×2 (11:51→17:10)
[2020-11-13] MEDS: Finasteride 5 MG TABLET PO SCH (11:51)
[2020-11-13] MEDS: Insulin LISPRO 300 UNITS/3 ML VIAL SUBQ SCH ×3 (11:51→17:02)
[2020-11-13] MEDS: Nicotine 14 MG PATCH.TD24 TD SCH (11:51)
[2020-11-13] MEDS: Spironolactone 25 MG TABLET PO SCH (11:51)
[2020-11-13] MEDS: Gabapentin 100 MG CAPSULE PO SCH ×3 (11:51→20:53)
[2020-11-13] MEDS: Lactulose Oral Soln 20 GM/30 ML UDC PO SCH ×3 (11:51→20:50)
[2020-11-13] MEDS: calcitrioL 0.25 MCG CAPSULE PO SCH (11:51)
[2020-11-13] MEDS: Ammonium Lactate 30 APPL/225 GM BOTTLE TP SCH ×2 (11:52→20:55)
[2020-11-13] MEDS: Furosemide 20 MG/2 ML VIAL IVP SCH (11:55)
[2020-11-13] MEDS: CALCIFEDIOL 30 MCG PO SCH (11:56)
[2020-11-13] MEDS: Ipratropium/Albuterol Neb 3 ML IH PRN ×2 (12:37→22:21)
[2020-11-13] MEDS: Loratadine 10 MG TABLET PO SCH (20:53)
[2020-11-14 03:27] LABS: Basophils % 0.6 %; Eosinophils % 7.3 %; Mean Corpuscular Volume 102.8 fL (83.0-100.0)
[2020-11-14 03:28] LABS: Eosinophils # 0.3 K/mcL (0.0-0.6); Hematocrit 25.5 % (37.5-50.1); Hemoglobin 7.6 g/dL (12.9-16.9); Immature Granulocytes % 0.2 % (0-4); Immature Platelets 9.3 % (1.1-6.1); Lymphocytes # 1.1 K/mcL (0.6-4.6); Lymphocytes % 23.7 %; Mean Corpuscular HGB Conc 29.8 g/dL (31.6-35.5); Mean Corpuscular Hemoglobin 30.6 pg (28.0-33.3); Mean Platelet Volume 12.9 fL (9.4-12.4); Monocytes # 0.4 K/mcL (0.0-1.3); Neutrophils # 2.8 K/mcL (1.6-8.9); Red Blood Count 2.48 M/mcL (4.19-5.50); Red Cell Distribution Width 17.8 % (11.5-14.5); Segmented Neutrophils % 59.2 %; White Blood Count 4.7 K/mcL (4.3-11.1)
[2020-11-14 03:30] LABS: Platelet Count 40 K/mcL (140-400)
[2020-11-14 03:33] LABS: INR 1.6; Prothrombin Time 17.8 Seconds (9.4-12.1)
[2020-11-14 03:47] LABS: Albumin/Globulin Ratio 1.4 (1.1-2.2); Bilirubin,Total 1.5 mg/dL (0.3-1.0); Calcium 9.5 mg/dL (8.6-10.3); Globulin 2.8 g/dL (2.4-3.5); Magnesium 2.1 mg/dL (1.6-2.6); Phosphorous 2.9 mg/dL (2.7-4.5); Potassium 4.4 mEq/L (3.5-5.1); Total Protein 6.8 g/dL (6.4-8.9)
[2020-11-14] MEDS: Gabapentin 100 MG CAPSULE PO SCH ×3 (08:38→19:41)
[2020-11-14] MEDS: Furosemide 40 MG TABLET PO SCH (08:38)
[2020-11-14] MEDS: carvediloL 6.25 MG TABLET PO SCH (08:38)
[2020-11-14] MEDS: Spironolactone 25 MG TABLET PO SCH (08:38)
[2020-11-14] MEDS: Multivit/Ca/Min/Fe/FA 1 TAB TABLET PO SCH (08:38)
[2020-11-14] MEDS: Finasteride 5 MG TABLET PO SCH (08:38)
[2020-11-14] MEDS: Nicotine 14 MG PATCH.TD24 TD SCH (08:39)
[2020-11-14] MEDS: CALCIFEDIOL 30 MCG PO SCH (08:39)
[2020-11-14] MEDS: Lactulose Oral Soln 20 GM/30 ML UDC PO SCH ×3 (08:39→19:41)
[2020-11-14] MEDS: Ammonium Lactate 30 APPL/225 GM BOTTLE TP SCH ×2 (08:39→19:42)
[2020-11-14] MEDS: Insulin LISPRO 300 UNITS/3 ML VIAL SUBQ SCH ×3 (08:39→18:10)
[2020-11-14] MEDS ORDERED: methylPREDNISolone 125 MG/2 ML VIAL IVP ONE (09:52)
[2020-11-14] MEDS: Budesonide/Formoterol 160/4.5 1 PUFF INH IH SCH ×2 (10:22→20:01)
[2020-11-14] MEDS: Ipratropium/Albuterol Neb 3 ML IH SCH ×6 (10:22→23:34)
[2020-11-14] MEDS: Azithromycin 250 MG TABLET PO SCH (14:00)
[2020-11-14] MEDS ORDERED: 0.9 % Sodium Chloride 250 ML ONE (15:42)
[2020-11-14] MEDS ORDERED: Furosemide 20 MG/2 ML VIAL IVP ONE ×2 (16:00→19:00)
[2020-11-14] MEDS: Loratadine 10 MG TABLET PO SCH (19:40)
[2020-11-14] MEDS: Chlorhexidine Rinse 15 ML MOUTHWASH MM SCH (19:41)
[2020-11-15 03:18] LABS: Lymphocytes % 8.9 %; Mean Corpuscular Volume 99.6 fL (83.0-100.0); Mean Platelet Volume 13.2 fL (9.4-12.4)
[2020-11-15 03:20] LABS: Basophils % 0.2 %; Eosinophils % 0.2 %; Hematocrit 26.2 % (37.5-50.1); Immature Granulocytes % 1.2 % (0-4); Immature Platelets 10.5 % (1.1-6.1); Lymphocytes # 0.6 K/mcL (0.6-4.6); Mean Corpuscular HGB Conc 30.5 g/dL (31.6-35.5); Mean Corpuscular Hemoglobin 30.4 pg (28.0-33.3); Monocytes # 0.2 K/mcL (0.0-1.3); Monocytes % 3.2 %; Neutrophils # 5.6 K/mcL (1.6-8.9); Red Blood Count 2.63 M/mcL (4.19-5.50); Red Cell Distribution Width 17.7 % (11.5-14.5); Segmented Neutrophils % 86.3 %; White Blood Count 6.5 K/mcL (4.3-11.1)
[2020-11-15 03:25] LABS: INR 1.6; Prothrombin Time 18.3 Seconds (9.4-12.1)
[2020-11-15 03:27] LABS: Platelet Count 45 K/mcL (140-400)
[2020-11-15 03:36] LABS: Albumin 3.9 g/dL (3.5-5.7); Albumin/Globulin Ratio 1.3 (1.1-2.2); Bilirubin,Total 1.5 mg/dL (0.3-1.0); Calcium 9.5 mg/dL (8.6-10.3); Globulin 2.9 g/dL (2.4-3.5); Phosphorous 2.2 mg/dL (2.7-4.5); Potassium 4.5 mEq/L (3.5-5.1); Total Protein 6.8 g/dL (6.4-8.9)
[2020-11-15] MEDS: Ipratropium/Albuterol Neb 3 ML IH SCH ×4 (04:02→16:00)
[2020-11-15] MEDS: Budesonide/Formoterol 160/4.5 1 PUFF INH IH SCH (07:57)
[2020-11-15] MEDS: Nicotine 14 MG PATCH.TD24 TD SCH (08:16)
[2020-11-15] MEDS: Multivit/Ca/Min/Fe/FA 1 TAB TABLET PO SCH (08:17)
[2020-11-15] MEDS: Finasteride 5 MG TABLET PO SCH (08:18)
[2020-11-15] MEDS: Spironolactone 25 MG TABLET PO SCH (08:18)
[2020-11-15] MEDS: Azithromycin 250 MG TABLET PO SCH (08:18)
[2020-11-15] MEDS: Furosemide 40 MG TABLET PO SCH (08:18)
[2020-11-15] MEDS: Gabapentin 100 MG CAPSULE PO SCH ×2 (08:18→16:13)
[2020-11-15] MEDS: CALCIFEDIOL 30 MCG PO SCH (08:19)
[2020-11-15] MEDS: Insulin LISPRO 300 UNITS/3 ML VIAL SUBQ SCH ×3 (08:19→17:20)
[2020-11-15] MEDS: Ammonium Lactate 30 APPL/225 GM BOTTLE TP SCH (08:19)
[2020-11-15] MEDS: Lactulose Oral Soln 20 GM/30 ML UDC PO SCH ×2 (08:19→16:13)
[2020-11-15] MEDS: Chlorhexidine Rinse 15 ML MOUTHWASH MM SCH (08:20)
[2020-11-15] MEDS ORDERED: predniSONE 20 MG TABLET PO SCH (09:00)
[2020-11-15] MEDS ORDERED: NIFEdipine XL (24 HR) 30 MG TAB.ER.24 PO SCH (09:00)
[2020-11-15 12:12] LABS: Adenovirus Not Detected (Not Detect); Bordetella Pertussis Not Detected (Not Detect); Chlamydophila pneumoniae Not Detected (Not Detect); Coronavirus 229E Not Detected (Not Detect); Coronavirus HKU1 Not Detected (Not Detect); Coronavirus NL63 Not Detected (Not Detect); Coronavirus OC43 Not Detected (Not Detect); Human Metapneumovirus Not Detected (Not Detect); Human Rhinovirus/Enterovirus Not Detected (Not Detect); Influenza A Subtype 2009 H1 Not Detected (Not Detect); Influenza B Not Detected (Not Detect); Mycoplasma pneumoniae Not Detected (Not Detect); Parainfluenza Virus 1 Not Detected (Not Detect); Parainfluenza Virus 2 Not Detected (Not Detect); Parainfluenza Virus 3 Not Detected (Not Detect); Parainfluenza Virus 4 Not Detected (Not Detect); Respiratory Syncytial Virus Not Detected (Not Detect); SARS-CoV-2 Not Detected (Not Detect)
[2020-11-15 16:58] VITALS: BP 129/65; PULSE 72; TEMP 98; O2SAT 99
== END 2020-11-15 17:45 | disposition other institution (70) | DRG 441 ==
LOC: 2ANU → OBSVTOIN 22:25 → SUATTDRO 22:25
PROVIDERS: ADMIT Student in an Organized Health Care Education/Training Program; ATTEND Internal Medicine
PROC: ENDOEBX (2020-11-13 10:20)

== ENCOUNTER 2020-12-20 20:58 | Inpatient (IN) ==
[2020-12-20 23:14] LABS: Bilirubin,Urine Negative (Negative); Blood,Urine Negative (Negative); Clarity,Urine Clear (Clear); Color,Urine Yellow (Yellow); Glucose,Urine (UA) Normal (Normal); Ketones,Urine Negative (Negative); Leukocyte Esterase,Urine Negative (Negative); Nitrite,Urine Negative (Negative); Protein,Urine Trace mg/dL (Neg-Trace); Specific Gravity,Urine 1.015 (1.010-1.025); Urobilinogen,Urine Normal (Normal)
[2020-12-20 23:17] LABS: Hemoglobin 6.7 g/dL (12.9-16.9); Immature Granulocytes % 0.2 % (0-4); Mean Corpuscular Volume 103.3 fL (83.0-100.0)
[2020-12-20 23:18] LABS: Basophils % 0.6 %; Eosinophils # 0.2 K/mcL (0.0-0.6); Eosinophils % 3.1 %; Hematocrit 21.9 % (37.5-50.1); Immature Platelets 6.9 % (1.1-6.1); Lymphocytes # 1.3 K/mcL (0.6-4.6); Lymphocytes % 27.5 %; Mean Corpuscular HGB Conc 30.6 g/dL (31.6-35.5); Mean Corpuscular Hemoglobin 31.6 pg (28.0-33.3); Mean Platelet Volume 12.2 fL (9.4-12.4); Monocytes # 0.6 K/mcL (0.0-1.3); Monocytes % 11.4 %; Neutrophils # 2.8 K/mcL (1.6-8.9); Red Blood Count 2.12 M/mcL (4.19-5.50); Red Cell Distribution Width 19.6 % (11.5-14.5); Segmented Neutrophils % 57.2 %; White Blood Count 4.8 K/mcL (4.3-11.1)
[2020-12-20 23:19] LABS: Platelet Count 46 K/mcL (140-400)
[2020-12-20 23:19] LABS: VBG HCO3 17 mEq/L (21-27); VBG PCO2 37 mmHg (41-51); VBG PH 7.28 pH Units (7.32-7.42); VBG PO2 228 mmHg (25-50)
[2020-12-20 23:35] LABS: Albumin/Globulin Ratio 0.9 (1.1-2.2); Bilirubin,Total 1.4 mg/dL (0.3-1.0); Calcium 9.1 mg/dL (8.6-10.3); Globulin 3.2 g/dL (2.4-3.5); Total Protein 6.2 g/dL (6.4-8.9)
[2020-12-20 23:37] LABS: INR 1.5; Prothrombin Time 17.1 Seconds (9.4-12.1)
[2020-12-20 23:39] LABS: Activated Partial Thrombo Time 36.8 Seconds (26.0-36.0)
[2020-12-21] MEDS ORDERED: Lactulose Oral Soln 20 GM/30 ML UDC PO ONE (00:05)
[2020-12-21] MEDS ORDERED: Pantoprazole 40 MG VIAL IVP ONE (00:48)
[2020-12-21] MEDS ORDERED: Furosemide 20 MG/2 ML VIAL IVP ONE (01:06)
[2020-12-21] MEDS ORDERED: Ondansetron 4 MG/2 ML VIAL IVP PRN (03:12)
[2020-12-21] MEDS ORDERED: Naloxone 0.4 MG/ML INJ IVP PRN (03:12)
[2020-12-21] MEDS ORDERED: Octreotide 50 MCG/ML INJ IVP ONE (03:18)
[2020-12-21] MEDS ORDERED: Octreotide 400 MCG in 0.9 % Sodium Chloride 100 ML IVC SCH (03:30)
[2020-12-21] MEDS ORDERED: Dextrose Gel 15 GM/37.5 ML TUBE PO PRN ×2 (03:36)
[2020-12-21] MEDS ORDERED: D5% in Water 1,000 ML IVC PRN (03:36)
[2020-12-21] MEDS ORDERED: *HR* Dextrose 50 % in Water (Syg) 50 ML SYRINGE IVP PRN (03:36)
[2020-12-21] MEDS ORDERED: Albumin 25% 25gram/100mL 25 GM/100 ML IV.SOLN IVPB ONE (05:39)
[2020-12-21] MEDS: Insulin LISPRO 300 UNITS/3 ML VIAL SUBQ SCH ×3 (06:01→17:53)
[2020-12-21] MEDS: Pantoprazole 40 MG VIAL IVP SCH ×2 (06:26→18:03)
[2020-12-21] MEDS ORDERED: cefTRIAXone 2,000 MG in Water for inj. (sterile) 20 ML IVP SCH (08:00)
[2020-12-21] MEDS: Lactulose Oral Soln 20 GM/30 ML UDC PO SCH ×4 (08:18→21:25)
[2020-12-21 08:46] LABS: Hematocrit 23.6 % (37.5-50.1); Hemoglobin 7.1 g/dL (12.9-16.9); Mean Corpuscular HGB Conc 30.1 g/dL (31.6-35.5); Mean Platelet Volume 12.8 fL (9.4-12.4)
[2020-12-21 08:47] LABS: Immature Platelets 6.3 % (1.1-6.1); Mean Corpuscular Hemoglobin 31.4 pg (28.0-33.3); Mean Corpuscular Volume 104.4 fL (83.0-100.0); Red Blood Count 2.26 M/mcL (4.19-5.50); Red Cell Distribution Width 19.5 % (11.5-14.5); White Blood Count 4.6 K/mcL (4.3-11.1)
[2020-12-21 09:08] LABS: Calcium 9.3 mg/dL (8.6-10.3); Potassium 4.8 mEq/L (3.5-5.1)
[2020-12-22] MEDS: Insulin LISPRO 300 UNITS/3 ML VIAL SUBQ SCH ×4 (00:35→17:23)
[2020-12-22 02:36] LABS: Basophils % 0.8 %; Eosinophils # 0.1 K/mcL (0.0-0.6); Eosinophils % 2.7 %; Hematocrit 23.5 % (37.5-50.1); Hemoglobin 7.2 g/dL (12.9-16.9); Immature Granulocytes % 0.2 % (0-4); Lymphocytes # 1.1 K/mcL (0.6-4.6); Lymphocytes % 21.6 %; Mean Corpuscular HGB Conc 30.6 g/dL (31.6-35.5); Mean Corpuscular Hemoglobin 31.3 pg (28.0-33.3); Mean Corpuscular Volume 102.2 fL (83.0-100.0); Mean Platelet Volume 11.9 fL (9.4-12.4); Monocytes # 0.5 K/mcL (0.0-1.3); Red Cell Distribution Width 19.7 % (11.5-14.5); Segmented Neutrophils % 65.7 %; White Blood Count 5.2 K/mcL (4.3-11.1)
[2020-12-22 02:37] LABS: Neutrophils # 3.4 K/mcL (1.6-8.9); Platelet Count 41 K/mcL (140-400)
[2020-12-22 02:45] LABS: INR 1.6; Prothrombin Time 17.5 Seconds (9.4-12.1)
[2020-12-22 03:00] LABS: Albumin 3.2 g/dL (3.5-5.7); Albumin/Globulin Ratio 0.9 (1.1-2.2); Bilirubin,Direct 0.6 mg/dL (0.0-0.2); Bilirubin,Indirect 1.1 mg/dL (0.0-1.0); Bilirubin,Total 1.7 mg/dL (0.3-1.0); Calcium 9.5 mg/dL (8.6-10.3); Globulin 3.4 g/dL (2.4-3.5); Globulin 3.5 g/dL (2.4-3.5); Potassium 5.1 mEq/L (3.5-5.1); Total Protein 6.6 g/dL (6.4-8.9); Total Protein 6.7 g/dL (6.4-8.9)
[2020-12-22] MEDS: Pantoprazole 40 MG VIAL IVP SCH ×2 (06:44→18:02)
[2020-12-22] MEDS: Lactulose Oral Soln 20 GM/30 ML UDC PO SCH ×4 (07:33→22:57)
[2020-12-22] MEDS ORDERED: NIFEdipine XL (24 HR) 30 MG TAB.ER.24 PO SCH (09:00)
[2020-12-22] MEDS ORDERED: Lactulose Oral Soln 20 GM/30 ML UDC PO SCH (09:00)
[2020-12-22] MEDS: Gabapentin 100 MG CAPSULE PO SCH ×4 (13:34→22:57)
[2020-12-22] MEDS: Finasteride 5 MG TABLET PO SCH (13:34)
[2020-12-22] MEDS: Sucralfate 1 GM TABLET PO SCH ×2 (13:35→17:56)
[2020-12-22] MEDS ORDERED: cefTRIAXone 1,000 MG in 0.9 % Sodium Chloride Mini Bag 100 ML IVPB ONE (15:25)
[2020-12-22] MEDS: Lactulose 200 GM, Sodium Chloride IRRigation 700 ML RC SCH (18:02)
[2020-12-22] MEDS ORDERED: Octreotide 400 MCG in 0.9 % Sodium Chloride 100 ML IVC SCH (22:45)
[2020-12-22 23:17] LABS: Hematocrit 24.3 % (37.5-50.1); Hemoglobin 7.3 g/dL (12.9-16.9)
[2020-12-23] MEDS: Insulin LISPRO 300 UNITS/3 ML VIAL SUBQ SCH ×4 (00:13→21:04)
[2020-12-23] MEDS: Pantoprazole 40 MG VIAL IVP SCH ×2 (05:32→16:37)
[2020-12-23 06:30] LABS: Immature Granulocytes % 0.3 % (0-4); Lymphocytes % 23.2 %; Mean Corpuscular Volume 102.2 fL (83.0-100.0)
[2020-12-23 06:32] LABS: Basophils # 0.1 K/mcL (0.0-0.2); Eosinophils # 0.2 K/mcL (0.0-0.6); Eosinophils % 2.9 %; Hematocrit 23.6 % (37.5-50.1); Hemoglobin 7.3 g/dL (12.9-16.9); Immature Platelets 8.3 % (1.1-6.1); Mean Corpuscular HGB Conc 30.9 g/dL (31.6-35.5); Mean Corpuscular Hemoglobin 31.6 pg (28.0-33.3); Mean Platelet Volume 12.9 fL (9.4-12.4); Monocytes # 0.7 K/mcL (0.0-1.3); Monocytes % 11.4 %; Neutrophils # 3.6 K/mcL (1.6-8.9); Red Blood Count 2.31 M/mcL (4.19-5.50); Red Cell Distribution Width 20.1 % (11.5-14.5); Segmented Neutrophils % 61.2 %; White Blood Count 5.8 K/mcL (4.3-11.1)
[2020-12-23 06:40] LABS: Albumin 3.2 g/dL (3.5-5.7); Calcium 9.6 mg/dL (8.6-10.3); Globulin 3.2 g/dL (2.4-3.5); Potassium 5.1 mEq/L (3.5-5.1); Total Protein 6.4 g/dL (6.4-8.9)
[2020-12-23 06:46] LABS: Lymphocytes # 1.4 K/mcL (0.6-4.6); Platelet Count 47 K/mcL (140-400)
[2020-12-23] MEDS: Lactulose Oral Soln 20 GM/30 ML UDC PO SCH ×2 (09:51→21:09)
[2020-12-23] MEDS: Gabapentin 100 MG CAPSULE PO SCH (09:54)
[2020-12-23] MEDS: Finasteride 5 MG TABLET PO SCH (09:54)
[2020-12-23] MEDS: Lactulose 200 GM, Sodium Chloride IRRigation 700 ML RC SCH (13:12)
[2020-12-23 14:47] LABS: % Iron Saturation 18 % (20-55); Iron 52 mcg/dL (65-175); Transferrin 202 mg/dL (203-362)
[2020-12-23] MEDS: Lactulose Oral Soln 20 GM/30 ML UDC GTUBE SCH ×2 (16:19→16:36)
[2020-12-24] MEDS: Insulin LISPRO 300 UNITS/3 ML VIAL SUBQ SCH ×4 (01:38→17:52)
[2020-12-24 02:26] LABS: Basophils % 0.7 %; Eosinophils # 0.2 K/mcL (0.0-0.6); Eosinophils % 4.2 %; Hematocrit 22.5 % (37.5-50.1); Hemoglobin 6.9 g/dL (12.9-16.9); Immature Granulocytes % 0.2 % (0-4); Immature Platelets 6.6 % (1.1-6.1); Lymphocytes # 1.4 K/mcL (0.6-4.6); Lymphocytes % 26.1 %; Mean Corpuscular HGB Conc 30.7 g/dL (31.6-35.5); Mean Corpuscular Hemoglobin 32.2 pg (28.0-33.3); Mean Corpuscular Volume 105.1 fL (83.0-100.0); Mean Platelet Volume 13.6 fL (9.4-12.4); Monocytes # 0.6 K/mcL (0.0-1.3); Monocytes % 10.8 %; Red Blood Count 2.14 M/mcL (4.19-5.50); Red Cell Distribution Width 20.1 % (11.5-14.5); White Blood Count 5.4 K/mcL (4.3-11.1)
[2020-12-24 02:29] LABS: Neutrophils # 3.1 K/mcL (1.6-8.9); Platelet Count 45 K/mcL (140-400)
[2020-12-24 02:45] LABS: Calcium 9.4 mg/dL (8.6-10.3); Potassium 4.5 mEq/L (3.5-5.1)
[2020-12-24] MEDS: Pantoprazole 40 MG VIAL IVP SCH (06:14)
[2020-12-24] MEDS ORDERED: 0.9 % Sodium Chloride 250 ML ONE (06:32)
[2020-12-24] MEDS: Lactulose 200 GM, Sodium Chloride IRRigation 700 ML RC SCH (07:13)
[2020-12-24] MEDS: Finasteride 5 MG TABLET PO SCH (08:24)
[2020-12-24] MEDS: Lactulose Oral Soln 20 GM/30 ML UDC PO SCH ×3 (08:26→21:15)
[2020-12-24 11:35] LABS: INR 1.6; Prothrombin Time 18.1 Seconds (9.4-12.1)
[2020-12-24 11:46] LABS: Albumin 3.4 g/dL (3.5-5.7); Albumin/Globulin Ratio 0.9 (1.1-2.2); Bilirubin,Direct 0.7 mg/dL (0.0-0.2); Bilirubin,Indirect 1.5 mg/dL (0.0-1.0); Bilirubin,Total 2.2 mg/dL (0.3-1.0); Globulin 3.9 g/dL (2.4-3.5); Total Protein 7.3 g/dL (6.4-8.9)
[2020-12-24 12:12] LABS: Folate 9.2 ng/mL (3.0-16.0)
[2020-12-24 12:34] LABS: Vitamin B12 > 1500 pg/mL (250-1100)
[2020-12-24] MEDS: Sucralfate 1 GM TABLET PO SCH (19:23)
[2020-12-25] MEDS: Insulin LISPRO 300 UNITS/3 ML VIAL SUBQ SCH ×4 (00:14→19:37)
[2020-12-25 02:34] LABS: Hemoglobin 7.5 g/dL (12.9-16.9); Immature Granulocytes % 0.2 % (0-4); Red Cell Distribution Width 18.9 % (11.5-14.5)
[2020-12-25 02:35] LABS: Basophils # 0.1 K/mcL (0.0-0.2); Basophils % 1.1 %; Eosinophils # 0.2 K/mcL (0.0-0.6); Eosinophils % 4.4 %; Hematocrit 24.2 % (37.5-50.1); Immature Platelets 8.3 % (1.1-6.1); Lymphocytes # 1.2 K/mcL (0.6-4.6); Lymphocytes % 25.7 %; Mean Corpuscular Hemoglobin 31.8 pg (28.0-33.3); Mean Corpuscular Volume 102.5 fL (83.0-100.0); Mean Platelet Volume 11.2 fL (9.4-12.4); Monocytes # 0.5 K/mcL (0.0-1.3); Monocytes % 10.2 %; Neutrophils # 2.7 K/mcL (1.6-8.9); Red Blood Count 2.36 M/mcL (4.19-5.50); Segmented Neutrophils % 58.4 %; White Blood Count 4.6 K/mcL (4.3-11.1)
[2020-12-25 02:41] LABS: Platelet Count 39 K/mcL (140-400)
[2020-12-25 02:50] LABS: Calcium 9.2 mg/dL (8.6-10.3); Potassium 4.2 mEq/L (3.5-5.1)
[2020-12-25] MEDS ORDERED: Albuterol 2.5 MG/3 ML NEBULIZER IH ONE (08:38)
[2020-12-25] MEDS ORDERED: Albuterol 2.5 MG/3 ML NEBULIZER ONE (08:49)
[2020-12-25] MEDS ORDERED: Ferrous Sulfate Oral Soln 300 MG/5 ML UDC PO SCH (09:00)
[2020-12-25] MEDS: Finasteride 5 MG TABLET PO SCH (09:53)
[2020-12-25] MEDS: Lactulose Oral Soln 20 GM/30 ML UDC PO SCH ×3 (09:54→21:54)
[2020-12-26] MEDS: Insulin LISPRO 300 UNITS/3 ML VIAL SUBQ SCH ×4 (03:23→17:27)
[2020-12-26] MEDS: Finasteride 5 MG TABLET PO SCH (09:19)
[2020-12-26] MEDS: Lactulose Oral Soln 20 GM/30 ML UDC PO SCH ×3 (09:20→20:47)
[2020-12-27] MEDS: Insulin LISPRO 300 UNITS/3 ML VIAL SUBQ SCH ×4 (02:03→16:08)
[2020-12-27] MEDS: Lactulose Oral Soln 20 GM/30 ML UDC PO SCH ×2 (09:02→16:07)
[2020-12-27] MEDS: Finasteride 5 MG TABLET PO SCH (09:03)
[2020-12-27 10:28] VITALS: O2SAT 97
[2020-12-27 15:31] VITALS: BP 135/47; PULSE 71; TEMP 97.6
== END 2020-12-27 19:30 | disposition other institution (70) | DRG 441 ==
LOC: 2NENU 20:58 → EMEROOARM 20:58 → SUATTDRO 12-21 02:25 → 2NENU 12-21 04:15 → SUATTDRO 12-22 18:20
PROVIDERS: ADMIT Student in an Organized Health Care Education/Training Program; ATTEND Internal Medicine

== ENCOUNTER 2021-01-06 09:39 | Inpatient (IN) ==
[2021-01-06] MEDS ORDERED: Ondansetron 4 MG/2 ML VIAL IVP PRN (12:29)
[2021-01-06] MEDS ORDERED: Naloxone 0.4 MG/ML INJ IVP PRN (12:29)
[2021-01-06] MEDS ORDERED: *HR* Dextrose 50 % in Water (Syg) 50 ML SYRINGE IVP PRN (12:33)
[2021-01-06] MEDS ORDERED: Dextrose Gel 15 GM/37.5 ML TUBE PO PRN ×2 (12:33)
[2021-01-06] MEDS ORDERED: D5% in Water 1,000 ML IVC PRN (12:33)
[2021-01-06 13:45] LABS: Hematocrit 22.6 % (37.5-50.1); Hemoglobin 6.9 g/dL (12.9-16.9)
[2021-01-06] MEDS: Lactulose Oral Soln 20 GM/30 ML UDC PO SCH ×2 (14:02→22:39)
[2021-01-06] MEDS: Albumin 25% 25gram/100mL 25 GM/100 ML IV.SOLN IVPB SCH ×2 (14:02→22:40)
[2021-01-06 14:04] LABS: Calcium 9.1 mg/dL (8.6-10.3); Phosphorous 4.4 mg/dL (2.7-4.5); Potassium 5.2 mEq/L (3.5-5.1)
[2021-01-06] MEDS ORDERED: 0.9 % Sodium Chloride 250 ML ONE (15:32)
[2021-01-06] MEDS: Insulin LISPRO 300 UNITS/3 ML VIAL SUBQ SCH ×2 (16:06→22:34)
[2021-01-06] MEDS: Sucralfate 1 GM TABLET PO SCH ×2 (16:06→22:40)
[2021-01-07 02:13] LABS: Hemoglobin 7.2 g/dL (12.9-16.9); Immature Granulocytes % 0.4 % (0-4)
[2021-01-07 02:15] LABS: Basophils % 0.7 %; Eosinophils # 0.1 K/mcL (0.0-0.6); Eosinophils % 2.1 %; Hematocrit 23.7 % (37.5-50.1); Immature Platelets 12.1 % (1.1-6.1); Lymphocytes # 1.4 K/mcL (0.6-4.6); Lymphocytes % 25.1 %; Mean Corpuscular HGB Conc 30.4 g/dL (31.6-35.5); Mean Corpuscular Hemoglobin 32.7 pg (28.0-33.3); Mean Corpuscular Volume 107.7 fL (83.0-100.0); Mean Platelet Volume 12.9 fL (9.4-12.4); Monocytes # 0.7 K/mcL (0.0-1.3); Monocytes % 12.6 %; Neutrophils # 3.3 K/mcL (1.6-8.9); Red Cell Distribution Width 19.4 % (11.5-14.5); Segmented Neutrophils % 59.1 %; White Blood Count 5.6 K/mcL (4.3-11.1)
[2021-01-07 02:19] LABS: Platelet Count 32 K/mcL (140-400)
[2021-01-07 02:34] LABS: Calcium 9.3 mg/dL (8.6-10.3); Phosphorous 4.6 mg/dL (2.7-4.5); Potassium 5.2 mEq/L (3.5-5.1)
[2021-01-07] MEDS: Albumin 25% 25gram/100mL 25 GM/100 ML IV.SOLN IVPB SCH (05:28)
[2021-01-07] MEDS ORDERED: Sodium Bicarbonate 75 MEQ in 0.45 % Sodium Chloride 1,000 ML IVC SCH (07:15)
[2021-01-07] MEDS: Finasteride 5 MG TABLET PO SCH (08:19)
[2021-01-07] MEDS: Lactulose Oral Soln 20 GM/30 ML UDC PO SCH ×3 (08:19→20:11)
[2021-01-07] MEDS: Sucralfate 1 GM TABLET PO SCH ×4 (08:19→20:11)
[2021-01-07] MEDS: Insulin LISPRO 300 UNITS/3 ML VIAL SUBQ SCH ×4 (08:21→20:09)
[2021-01-07] MEDS: Sodium Bicarbonate 75 MEQ in 0.45 % Sodium Chloride 1,000 ML IVC SCH ×2 (09:00→23:48)
[2021-01-08] MEDS ORDERED: GuaiFENesin Liq 200 MG/10 ML UDC PO PRN (04:11)
[2021-01-08 05:01] LABS: Folate 10.3 ng/mL (3.0-16.0)
[2021-01-08 05:03] LABS: Vitamin B12 > 1500 pg/mL (250-1100)
[2021-01-08 05:12] LABS: Calcium 9.3 mg/dL (8.6-10.3); Potassium 4.8 mEq/L (3.5-5.1)
[2021-01-08 05:24] LABS: Basophils % 0.8 %; Mean Corpuscular Volume 106.6 fL (83.0-100.0); Red Cell Distribution Width 19.4 % (11.5-14.5)
[2021-01-08 05:26] LABS: Eosinophils # 0.1 K/mcL (0.0-0.6); Eosinophils % 2.7 %; Hematocrit 22.6 % (37.5-50.1); Immature Granulocytes % 0.4 % (0-4); Immature Platelets 12.6 % (1.1-6.1); Lymphocytes % 25.9 %; Mean Platelet Volume 13.2 fL (9.4-12.4); Monocytes # 0.6 K/mcL (0.0-1.3); Monocytes % 11.8 %; Neutrophils # 2.8 K/mcL (1.6-8.9); Red Blood Count 2.12 M/mcL (4.19-5.50); Segmented Neutrophils % 58.4 %; White Blood Count 4.8 K/mcL (4.3-11.1)
[2021-01-08 05:38] LABS: Lymphocytes # 1.2 K/mcL (0.6-4.6); Platelet Count 31 K/mcL (140-400)
[2021-01-08] MEDS: Insulin LISPRO 300 UNITS/3 ML VIAL SUBQ SCH ×4 (07:22→21:19)
[2021-01-08] MEDS: Finasteride 5 MG TABLET PO SCH (08:22)
[2021-01-08] MEDS: Sucralfate 1 GM TABLET PO SCH ×4 (08:22→21:19)
[2021-01-08] MEDS: Lactulose Oral Soln 20 GM/30 ML UDC PO SCH ×3 (08:23→21:20)
[2021-01-08] MEDS ORDERED: 0.9 % Sodium Chloride 500 ML ONE (10:40)
[2021-01-08 12:05] LABS: Albumin 3.6 g/dL (3.5-5.7); Albumin/Globulin Ratio 1.1 (1.1-2.2); Bilirubin,Direct 0.7 mg/dL (0.0-0.2); Bilirubin,Indirect 1.3 mg/dL (0.0-1.0); Globulin 3.2 g/dL (2.4-3.5); Total Protein 6.8 g/dL (6.4-8.9)
[2021-01-08 12:12] LABS: INR 1.6; Prothrombin Time 17.7 Seconds (9.4-12.1)
[2021-01-08 15:29] LABS: Bilirubin,Urine Negative (Negative); Blood,Urine Negative (Negative); Clarity,Urine Clear (Clear); Color,Urine Yellow (Yellow); Glucose,Urine (UA) Normal (Normal); Hyaline Casts,Urine Few per lpf (None Seen); Ketones,Urine Negative (Negative); Leukocyte Esterase,Urine Negative (Negative); Mucus,Urine Few per lpf (None-Few); Nitrite,Urine Negative (Negative); PH,Urine 5.5 pH Units (5.0-8.0); Protein,Urine 100 mg/dL (Neg-Trace); RBC,Urine 0-3 per hpf (0-3); Renal Epithelial Cells,Urine Few per hpf (None-Few); Squamous Epithelial Cell,Urine Few per hpf (None-Few); Transitional Epi Cells,Urine Few per hpf (None-Few); Urobilinogen,Urine Normal (Normal)
[2021-01-08 15:37] LABS: Creatinine,Urine 40 mg/dL; Sodium, Urine < 10.0 mEq/L
[2021-01-08] MEDS ORDERED: Albumin 25% 25gram/100mL 25 GM/100 ML IV.SOLN IVPB ONE (15:40)
[2021-01-08] MEDS ORDERED: 0.9 % Sodium Chloride 250 ML ONE ×2 (16:31→22:58)
[2021-01-08] MEDS ORDERED: SODIUM CHLORIDE/NAHCO3/KCL/PEG 4,000 ML SOLN.RECON PO ONE (17:00)
[2021-01-08] MEDS ORDERED: Nystatin Cream 15 GM TUBE TP SCH (21:00)
[2021-01-08] MEDS ORDERED: Lactulose 200 GM, Sodium Chloride IRRigation 700 ML RC ONE (21:23)
[2021-01-08 22:04] LABS: Hemoglobin 7.1 g/dL (12.9-16.9)
[2021-01-08 22:05] LABS: Immature Platelets 8.4 % (1.1-6.1); Mean Corpuscular HGB Conc 30.9 g/dL (31.6-35.5); Mean Corpuscular Hemoglobin 32.6 pg (28.0-33.3); Mean Corpuscular Volume 105.5 fL (83.0-100.0); Mean Platelet Volume 12.7 fL (9.4-12.4); Red Blood Count 2.18 M/mcL (4.19-5.50); Red Cell Distribution Width 19.5 % (11.5-14.5); White Blood Count 4.7 K/mcL (4.3-11.1)
[2021-01-08] MEDS: Nystatin POWDER 30 GM BOTTLE TP SCH (23:35)
[2021-01-09 05:15] LABS: Basophils % 0.4 %; Eosinophils # 0.1 K/mcL (0.0-0.6); Hematocrit 22.7 % (37.5-50.1); Immature Granulocytes % 0.7 % (0-4); Immature Platelets 10.4 % (1.1-6.1); Lymphocytes # 1.2 K/mcL (0.6-4.6); Lymphocytes % 27.3 %; Mean Corpuscular HGB Conc 30.8 g/dL (31.6-35.5); Mean Corpuscular Hemoglobin 32.9 pg (28.0-33.3); Mean Corpuscular Volume 106.6 fL (83.0-100.0); Monocytes # 0.6 K/mcL (0.0-1.3); Monocytes % 12.3 %; Neutrophils # 2.6 K/mcL (1.6-8.9); Red Blood Count 2.13 M/mcL (4.19-5.50); Red Cell Distribution Width 19.4 % (11.5-14.5); Segmented Neutrophils % 57.3 %; White Blood Count 4.5 K/mcL (4.3-11.1)
[2021-01-09 05:16] LABS: Platelet Count 36 K/mcL (140-400)
[2021-01-09] MEDS ORDERED: 0.9 % Sodium Chloride 1,000 ML IVC SCH (07:30)
[2021-01-09] MEDS: Insulin LISPRO 300 UNITS/3 ML VIAL SUBQ SCH ×4 (08:03→19:46)
[2021-01-09] MEDS: Nystatin POWDER 30 GM BOTTLE TP SCH ×3 (08:03→19:59)
[2021-01-09] MEDS: Sucralfate 1 GM TABLET PO SCH ×4 (08:07→19:46)
[2021-01-09] MEDS: Finasteride 5 MG TABLET PO SCH (08:08)
[2021-01-09] MEDS: Lactulose Oral Soln 20 GM/30 ML UDC PO SCH ×4 (08:08→20:42)
[2021-01-09 21:00] LABS: Hemoglobin 7.1 g/dL (12.9-16.9)
[2021-01-09 21:03] LABS: VBG HCO3 18 mEq/L (21-27); VBG PCO2 41 mmHg (41-51); VBG PH 7.25 pH Units (7.32-7.42); VBG PO2 120 mmHg (25-50)
[2021-01-10 05:09] LABS: Basophils % 0.7 %; Immature Granulocytes % 0.5 % (0-4)
[2021-01-10 05:11] LABS: Eosinophils # 0.1 K/mcL (0.0-0.6); Eosinophils % 2.7 %; Hematocrit 24.3 % (37.5-50.1); Hemoglobin 7.4 g/dL (12.9-16.9); Immature Platelets 8.2 % (1.1-6.1); Lymphocytes # 1.4 K/mcL (0.6-4.6); Lymphocytes % 34.7 %; Mean Corpuscular HGB Conc 30.5 g/dL (31.6-35.5); Mean Corpuscular Hemoglobin 32.7 pg (28.0-33.3); Mean Corpuscular Volume 107.5 fL (83.0-100.0); Mean Platelet Volume 12.4 fL (9.4-12.4); Monocytes # 0.4 K/mcL (0.0-1.3); Monocytes % 9.2 %; Neutrophils # 2.1 K/mcL (1.6-8.9); Red Blood Count 2.26 M/mcL (4.19-5.50); Red Cell Distribution Width 19.4 % (11.5-14.5); Segmented Neutrophils % 52.2 %
[2021-01-10 05:17] LABS: Platelet Count 37 K/mcL (140-400)
[2021-01-10 05:35] LABS: Potassium 5.1 mEq/L (3.5-5.1)
[2021-01-10] MEDS: Insulin LISPRO 300 UNITS/3 ML VIAL SUBQ SCH ×4 (08:03→20:42)
[2021-01-10] MEDS: Finasteride 5 MG TABLET PO SCH (10:22)
[2021-01-10] MEDS: Lactulose Oral Soln 20 GM/30 ML UDC PO SCH ×3 (10:22→20:42)
[2021-01-10] MEDS: Sucralfate 1 GM TABLET PO SCH ×4 (10:22→20:42)
[2021-01-10] MEDS: Nystatin POWDER 30 GM BOTTLE TP SCH ×3 (10:23→20:42)
[2021-01-10] MEDS ORDERED: Albumin 25% 25gram/100mL 25 GM/100 ML IV.SOLN IVPB ONE (15:08)
[2021-01-11] MEDS: Insulin LISPRO 300 UNITS/3 ML VIAL SUBQ SCH ×4 (07:52→20:36)
[2021-01-11] MEDS: Finasteride 5 MG TABLET PO SCH (09:29)
[2021-01-11] MEDS: Lactulose Oral Soln 20 GM/30 ML UDC PO SCH ×3 (09:29→20:35)
[2021-01-11] MEDS: Sucralfate 1 GM TABLET PO SCH ×4 (09:29→20:35)
[2021-01-11] MEDS: Nystatin POWDER 30 GM BOTTLE TP SCH ×3 (09:30→20:36)
[2021-01-11 12:21] LABS: Immature Granulocytes % 0.4 % (0-4)
[2021-01-11 12:23] LABS: Basophils % 0.9 %; Eosinophils # 0.2 K/mcL (0.0-0.6); Hematocrit 23.7 % (37.5-50.1); Hemoglobin 7.1 g/dL (12.9-16.9); Immature Platelets 8.6 % (1.1-6.1); Lymphocytes # 1.3 K/mcL (0.6-4.6); Lymphocytes % 28.1 %; Mean Corpuscular Hemoglobin 32.9 pg (28.0-33.3); Mean Corpuscular Volume 109.7 fL (83.0-100.0); Mean Platelet Volume 12.4 fL (9.4-12.4); Monocytes # 0.5 K/mcL (0.0-1.3); Monocytes % 11.4 %; Neutrophils # 2.5 K/mcL (1.6-8.9); Platelet Count 36 K/mcL (140-400); Red Blood Count 2.16 M/mcL (4.19-5.50); Red Cell Distribution Width 19.2 % (11.5-14.5); Segmented Neutrophils % 55.2 %; White Blood Count 4.5 K/mcL (4.3-11.1)
[2021-01-11 12:45] LABS: Calcium 8.8 mg/dL (8.6-10.3); Potassium 5.1 mEq/L (3.5-5.1)
[2021-01-11] MEDS ORDERED: Heparin 1,000 UNITS/500 mL 500 ML ONE (13:59)
[2021-01-11] MEDS ORDERED: *HR* Heparin 5,000 UNIT/ML VIAL ONE (14:40)
[2021-01-11] MEDS ORDERED: Albumin 25% 25gram/100mL 25 GM/100 ML IV.SOLN IVPB PRN (15:10)
[2021-01-11] MEDS ORDERED: *HR* Heparin 10,000 UNIT/10 ML VIAL IV ONE (15:10)
[2021-01-11] MEDS ORDERED: 0.9 % Sodium Chloride 250 ML IVC PRN (15:10)
[2021-01-11] MEDS ORDERED: 0.9 % Sodium Chloride 1,000 ML PRIME SCH (15:15)
[2021-01-11 17:31] LABS: Hepatitis B Surface Antibody 63.63 mIU/mL
[2021-01-11 17:41] LABS: Hepatitis B Surface Antigen Nonreactive (Nonreactive)
[2021-01-11 18:10] LABS: Hepatitis B Core IgM Nonreactive (Nonreactive)
[2021-01-12 07:56] LABS: Basophils % 0.8 %; Hemoglobin 6.8 g/dL (12.9-16.9)
[2021-01-12 07:58] LABS: Eosinophils # 0.1 K/mcL (0.0-0.6); Hematocrit 22.7 % (37.5-50.1); Immature Granulocytes % 0.8 % (0-4); Immature Platelets 8.6 % (1.1-6.1); Mean Corpuscular Hemoglobin 32.7 pg (28.0-33.3); Mean Corpuscular Volume 109.1 fL (83.0-100.0); Mean Platelet Volume 12.1 fL (9.4-12.4); Monocytes # 0.4 K/mcL (0.0-1.3); Monocytes % 10.1 %; Neutrophils # 2.4 K/mcL (1.6-8.9); Nucleated Red Blood Cells 0.5 /100 WBC (0); Red Blood Count 2.08 M/mcL (4.19-5.50); Red Cell Distribution Width 19.1 % (11.5-14.5); Segmented Neutrophils % 59.3 %
[2021-01-12 08:03] LABS: Platelet Count 30 K/mcL (140-400)
[2021-01-12] MEDS ORDERED: 0.9 % Sodium Chloride 250 ML IVC PRN (08:06)
[2021-01-12] MEDS ORDERED: *HR* Heparin 10,000 UNIT/10 ML VIAL IV PRN (08:06)
[2021-01-12] MEDS: Insulin LISPRO 300 UNITS/3 ML VIAL SUBQ SCH ×4 (08:09→20:23)
[2021-01-12 08:19] LABS: Calcium 8.6 mg/dL (8.6-10.3); Potassium 4.6 mEq/L (3.5-5.1)
[2021-01-12] MEDS: Sucralfate 1 GM TABLET PO SCH ×5 (08:24→20:33)
[2021-01-12] MEDS: Lactulose Oral Soln 20 GM/30 ML UDC PO SCH ×3 (08:24→15:07)
[2021-01-12] MEDS: Finasteride 5 MG TABLET PO SCH (08:24)
[2021-01-12] MEDS: Nystatin POWDER 30 GM BOTTLE TP SCH ×3 (08:24→20:24)
[2021-01-13 06:27] LABS: Basophils % 0.8 %; Hemoglobin 6.9 g/dL (12.9-16.9); Red Cell Distribution Width 19.4 % (11.5-14.5)
[2021-01-13 06:29] LABS: Eosinophils # 0.1 K/mcL (0.0-0.6); Eosinophils % 2.6 %; Hematocrit 22.7 % (37.5-50.1); Immature Granulocytes % 0.3 % (0-4); Immature Platelets 8.5 % (1.1-6.1); Lymphocytes # 1.1 K/mcL (0.6-4.6); Lymphocytes % 27.2 %; Mean Corpuscular HGB Conc 30.4 g/dL (31.6-35.5); Mean Corpuscular Hemoglobin 33.2 pg (28.0-33.3); Mean Corpuscular Volume 109.1 fL (83.0-100.0); Mean Platelet Volume 12.5 fL (9.4-12.4); Monocytes # 0.4 K/mcL (0.0-1.3); Monocytes % 10.1 %; Neutrophils # 2.3 K/mcL (1.6-8.9); Red Blood Count 2.08 M/mcL (4.19-5.50); White Blood Count 3.9 K/mcL (4.3-11.1)
[2021-01-13 06:31] LABS: Platelet Count 25 K/mcL (140-400)
[2021-01-13 06:49] LABS: Calcium 8.7 mg/dL (8.6-10.3); Potassium 4.2 mEq/L (3.5-5.1)
[2021-01-13] MEDS: Sucralfate 1 GM TABLET PO SCH ×4 (07:30→20:40)
[2021-01-13] MEDS ORDERED: 0.9 % Sodium Chloride 250 ML IVC PRN (08:09)
[2021-01-13] MEDS ORDERED: *HR* Heparin 10,000 UNIT/10 ML VIAL IV PRN (08:09)
[2021-01-13] MEDS: Insulin LISPRO 300 UNITS/3 ML VIAL SUBQ SCH ×4 (09:49→20:39)
[2021-01-13] MEDS: Finasteride 5 MG TABLET PO SCH (09:59)
[2021-01-13] MEDS: Lactulose Oral Soln 20 GM/30 ML UDC PO SCH ×3 (10:00→20:39)
[2021-01-13] MEDS: Nystatin POWDER 30 GM BOTTLE TP SCH ×3 (10:00→20:40)
[2021-01-13] MEDS ORDERED: 0.9 % Sodium Chloride 250 ML IVC SCH (13:45)
[2021-01-13 19:12] LABS: Eosinophils % 1.5 %
[2021-01-13 19:14] LABS: Basophils % 0.7 %; Eosinophils # 0.1 K/mcL (0.0-0.6); Hematocrit 23.1 % (37.5-50.1); Hemoglobin 7.2 g/dL (12.9-16.9); Immature Granulocytes % 0.5 % (0-4); Lymphocytes % 23.2 %; Mean Corpuscular HGB Conc 31.2 g/dL (31.6-35.5); Mean Platelet Volume 11.8 fL (9.4-12.4); Monocytes # 0.3 K/mcL (0.0-1.3); Monocytes % 6.9 %; Red Blood Count 2.18 M/mcL (4.19-5.50); Segmented Neutrophils % 67.2 %; White Blood Count 4.1 K/mcL (4.3-11.1)
[2021-01-13 19:15] LABS: Neutrophils # 2.8 K/mcL (1.6-8.9)
[2021-01-13 19:17] LABS: Platelet Count 21 K/mcL (140-400)
[2021-01-14] MEDS: Morphine Sulfate Oral CONC 10 MG/0.5 ML ORAL.SYG SL PRN ×4 (01:25→19:38)
[2021-01-14 05:27] LABS: Hemoglobin 7.2 g/dL (12.9-16.9); Mean Corpuscular Volume 106.3 fL (83.0-100.0)
[2021-01-14 05:29] LABS: Basophils % 0.5 %; Eosinophils # 0.1 K/mcL (0.0-0.6); Eosinophils % 1.8 %; Hematocrit 23.5 % (37.5-50.1); Immature Granulocytes % 0.2 % (0-4); Immature Platelets 11.3 % (1.1-6.1); Lymphocytes # 0.9 K/mcL (0.6-4.6); Lymphocytes % 21.3 %; Mean Corpuscular HGB Conc 30.6 g/dL (31.6-35.5); Mean Corpuscular Hemoglobin 32.6 pg (28.0-33.3); Mean Platelet Volume 11.8 fL (9.4-12.4); Monocytes # 0.4 K/mcL (0.0-1.3); Monocytes % 7.9 %; Red Blood Count 2.21 M/mcL (4.19-5.50); Red Cell Distribution Width 19.2 % (11.5-14.5); Segmented Neutrophils % 68.3 %; White Blood Count 4.4 K/mcL (4.3-11.1)
[2021-01-14 05:31] LABS: Platelet Count 22 K/mcL (140-400)
[2021-01-14 05:45] LABS: Calcium 8.7 mg/dL (8.6-10.3); Potassium 4.1 mEq/L (3.5-5.1)
[2021-01-14] MEDS ORDERED: Scopolamine Patch 1.5 MG PATCH.TD72 TD SCH ×2 (06:45→10:30)
[2021-01-14] MEDS: Insulin LISPRO 300 UNITS/3 ML VIAL SUBQ SCH (08:29)
[2021-01-14] MEDS: Sucralfate 1 GM TABLET PO SCH (08:29)
[2021-01-14] MEDS: Lactulose Oral Soln 20 GM/30 ML UDC PO SCH (08:30)
[2021-01-14] MEDS: Finasteride 5 MG TABLET PO SCH (08:31)
[2021-01-14] MEDS: Nystatin POWDER 30 GM BOTTLE TP SCH ×3 (08:34→21:22)
[2021-01-14] MEDS ORDERED: Glycopyrrolate 0.2 MG/ML VIAL IVP ONE (10:22)
[2021-01-14] MEDS: *HR* LORazepam 2 MG/ML VIAL IVP PRN ×2 (11:48→19:37)
[2021-01-14] MEDS: Atropine 1% Opth Drops 100 DROP/5 ML BOTTLE SL PRN (16:58)
[2021-01-14] MEDS ORDERED: Haloperidol Lactate 5 MG/ML VIAL IVP ONE (21:18)
[2021-01-15] MEDS: Morphine Sulfate Oral CONC 10 MG/0.5 ML ORAL.SYG SL PRN ×3 (00:35→10:26)
[2021-01-15] MEDS: *HR* LORazepam 2 MG/ML VIAL IVP PRN (00:36)
[2021-01-15] MEDS: Atropine 1% Opth Drops 100 DROP/5 ML BOTTLE SL PRN ×2 (03:22→07:52)
[2021-01-15] MEDS: Nystatin POWDER 30 GM BOTTLE TP SCH (08:03)
[2021-01-15] MEDS ORDERED: *HR* HYDROcodone/Acet 5/325 mg TABLET PO PRN (10:56)
[2021-01-15 15:52] VITALS: BP 117/49; PULSE 94; TEMP 99.4; O2SAT 77
== END 2021-01-15 12:03 | disposition hospice, inpatient (51) | DRG 682 ==
LOC: 2ANU → SUATTDRO 12:29
PROVIDERS: ADMIT Family Medicine; ATTEND Hospitalist

== ENCOUNTER 2021-01-15 10:33 | Inpatient (IN) ==
[2021-01-15] MEDS ORDERED: Haloperidol Lactate 5 MG/ML VIAL IVP PRN (10:39)
[2021-01-15] MEDS ORDERED: Bisacodyl 10 MG RECTAL SUPPOSITORY RC PRN (10:39)
[2021-01-15] MEDS ORDERED: Scopolamine Patch 1.5 MG PATCH.TD72 TD SCH (10:45)
[2021-01-15] MEDS: *HR* LORazepam 2 MG/ML VIAL IVP SCH ×3 (12:29→19:37)
[2021-01-15] MEDS: Atropine 1% Opth Drops 100 DROP/5 ML BOTTLE SL PRN ×2 (13:15→16:26)
[2021-01-15] MEDS: Morphine Sulfate 2 MG/ML SYRINGE IVP SCH ×2 (14:06→18:03)
[2021-01-15] MEDS: Morphine Sulfate 2 MG/ML SYRINGE IVP PRN ×3 (16:21→21:06)
[2021-01-15 20:03] VITALS: BP 96/40; PULSE 89; TEMP 99.2; O2SAT 100
== END 2021-01-15 22:46 | disposition expired | DRG 951 ==
LOC: 2ANU 12:06
PROVIDERS: ADMIT Internal Medicine Hospice and Palliative Medicine; ATTEND Internal Medicine Hospice and Palliative Medicine